=== PATIENT | female | born 1960 | race Caucasian/White ===

== ENCOUNTER → 2017-09-17 18:41 | Outpatient (CLI) | payer BC, SELFPAY | PROVIDERS: Family Provider Family Medicine; PCP Family Medicine; Visit Provider Family Medicine | DX: R30.0 Dysuria (principal) | CPT/HCPCS: 87077; 87086; 87088; 87186 ==

== ENCOUNTER → 2019-01-09 | Outpatient (CLI) | payer BC, SELFPAY | END | disposition home or self-care (01) | LOC: LABSPEC 13:55 | PROVIDERS: Family Provider Family Medicine; PCP Family Medicine; Referring Provider Family Medicine; Visit Provider Family Medicine | DX: N39.0 Urinary tract infection, site not specified (principal) | CPT/HCPCS: 87077; 87086; 87088; 87186 ==

== ENCOUNTER → 2019-02-02 | Outpatient (CLI) | payer BC, SELFPAY ==
[2019-02-06 12:19] LABS: HPV Reflexed? NOT INDICATED
== END | disposition home or self-care (01) ==
PROVIDERS: Family Provider Family Medicine; PCP Family Medicine; Referring Provider Family Medicine; Visit Provider Family Medicine
DX: N39.0 Urinary tract infection, site not specified (principal); Z12.4 Encounter for screening for malignant neoplasm of cervix
CPT/HCPCS: 87077; 87086; 87088; 87186; 88175; G0145

== ENCOUNTER → 2019-02-06 | Outpatient (CLI) | payer BC, SELFPAY ==
--- NOTE | 2019-02-06 12:49 | BI_ITS ---
MAMMOGRAPHY - BILATERAL SCREENING REASON FOR EXAM: Female, 58 years old. Routine annual screening examination. PERTINENT HISTORY: Aunt with breast cancer. Remote right stereotactic breast biopsy. TECHNIQUE: Digital bilateral breast hazel (3D mammographic acquisition) in the CC and MLO projections. 2-D mediolateral oblique (MLO) and craniocaudad (CC) views of both breasts were obtained. CAD: Full Field Digital Mammography with Computer Added Detection was performed. COMPARISON: Comparison is made with prior examination dated September 27, 2014 and October 20 FINDINGS: Breast Composition: The breasts are almost entirely fatty. There are no dominant masses or suspicious calcifications. A tissue clip marker is seen in the deep upper lateral aspect of the right breast. No other significant abnormalities are identified. There has been no significant change since the prior study. BI/SCREEN MAMM (CAD) W/HAZEL BILAT IMPRESSION: Stable bilateral screening mammogram. Yearly follow-up mammogram recommended. (A) ASSESSMENT CATEGORY: BIRADS Category 2: Benign. A letter regarding these results will be sent to the patient by the facility within 30 days. Approximately 10% of breast cancers are not detected by mammography. A normal mammogram should not delay biopsy of a clinically suspicious abnormality. [id number] Electronically Signed: Casey Arshad, at 14:26 EDT , Service support ,
== END | disposition home or self-care (01) ==
PROVIDERS: Family Provider Family Medicine; PCP Family Medicine; Referring Provider Family Medicine; Visit Provider Family Medicine
DX: Z12.31 Encounter for screening mammogram for malignant neoplasm of breast (principal)
CPT/HCPCS: 77063; 77067

== ENCOUNTER → 2019-06-26 16:57 | Outpatient (CLI) | payer BC, SELFPAY ==
--- NOTE | 2019-06-26 17:00 | RAD_ITS ---
STUDY: X-RAY - FACIAL BONES REASON FOR STUDY: Female, 58 years old. Facial contusion TECHNIQUE: 3 view(s) of the facial bones. COMPARISON: None. FINDINGS: There is no facial fracture identified. The paranasal sinuses are clear. There are no radiodense foreign bodies. RAD/Facial Bones min 3 Views IMPRESSION: No facial fracture identified. If indicated, further evaluation with CT can be performed. Electronically Signed: Won Alexis, at 10:03 EST Tel , Service support ,
== END ==
PROVIDERS: Family Provider Family Medicine; PCP Family Medicine; Referring Provider Family Medicine; Visit Provider Family Medicine
DX: S00.83XA Contusion of other part of head, initial encounter (principal)
CPT/HCPCS: 70150

== ENCOUNTER → 2020-04-29 14:45 | Outpatient (CLI) | payer BC, SELFPAY ==
--- NOTE | 2020-04-29 14:48 | RAD_ITS ---
STUDY: X-RAY - ABDOMEN/PELVIS REASON FOR EXAM: Female, 59 years old. constipation TECHNIQUE: Flat and upright COMPARISON: None. FINDINGS: Normal visualized lung bases. There is an unremarkable bowel gas pattern. There is no demonstrated free abdominal air. The visualized liver, spleen and kidneys are grossly normal in size and morphology. Postop changes status post cholecystectomy. Lumbar spine demonstrates mild degenerative change. RAD/Abd Inc Decub and/or Erect IMPRESSION: Nonspecific abdomen. Electronically Signed: Won Davis MD at 22:08 EST , Service support ,
== END ==
PROVIDERS: PCP Family Medicine; Referring Provider Family Medicine; Visit Provider Family Medicine
DX: K59.00 Constipation, unspecified (principal)
CPT/HCPCS: 74019

== ENCOUNTER → 2020-05-07 08:18 | Outpatient (CLI) | payer BC, SELFPAY ==
--- NOTE | 2020-05-07 08:20 | BI_ITS ---
MAMMOGRAPHY - BILATERAL SCREENING REASON FOR EXAM: Female, 59 years old. Routine annual screening examination. PERTINENT HISTORY: Aunt with breast cancer. Remote right stereotactic breast biopsy. TECHNIQUE: Digital bilateral breast hazel (3D mammographic acquisition) in the CC and MLO projections. 2-D mediolateral oblique (MLO) and craniocaudad (CC) views of both breasts were obtained. CAD: Full Field Digital Mammography with Computer Added Detection was performed. COMPARISON: Comparison is made with prior study dated 02/06/2019 and 10/20/2014. FINDINGS: Breast Composition: The breasts are almost entirely fatty. There are no dominant masses or suspicious calcifications. A tissue clip marker is once again seen in the deep upper lateral aspect of the right breast. No other significant abnormalities are identified. There has been no significant change since the prior study. BI/SCREEN MAMM (CAD) W/HAZEL BILAT IMPRESSION: Stable bilateral screening mammogram. Yearly follow-up mammogram recommended. (A) ASSESSMENT CATEGORY: BIRADS Category 2: Benign. A letter regarding these results will be sent to the patient by the facility within 30 days. Approximately 10% of breast cancers are not detected by mammography. A normal mammogram should not delay biopsy of a clinically suspicious abnormality. [id number] Electronically Signed: Casey Arshad, at 8:33 EST , Service support ,
== END ==
PROVIDERS: PCP Family Medicine; Referring Provider Family Medicine; Visit Provider Family Medicine
DX: Z00.00 Encounter for general adult medical examination without abnormal findings (principal); Z12.31 Encounter for screening mammogram for malignant neoplasm of breast
CPT/HCPCS: 77063; 77067

== ENCOUNTER → 2020-05-17 15:37 | Outpatient (CLI) | payer BC, SELFPAY ==
--- NOTE | 2020-05-17 15:51 | BD_ITS ---
STUDY: DUAL ENERGY X-RAY ABSORPTIOMETRY / DXA REASON FOR EXAM: Female, 59 years old. Age of marcell 43. Pat is 181# and 68 and quot; a loss of 1.5 and quot; per pat. Pat is a smoker. Exercises moderately. Hx of L4-5 fusion. TECHNIQUE: Bone Mineral Density (BMD) measurements of lumbar spine and bilateral hips were obtained. COMPARISON: Comparison is made with prior study dated 12/04/2005. FINDINGS: Lumbar Spine (L1-L4): g/cm2 (1.207) / T-score (0.2) / Z-score (1.5) Findings are suggestive of normal bone density with a low fracture risk. Left Femur Total: g/cm2 (1.009) / T-score (0.0) / Z-score (1.0) Left Femoral Neck: g/cm2 (1.013) / T-score (-0.2) / Z-score (1.1) Right Femur Total: g/cm2 (0.954) / T-score (-0.4) / Z-score (0.5) Right Femoral Neck: g/cm2 (0.954) / T-score (0.6) / Z-score (0.6) The T-Scores on the most recent prior examination were: Lumbar Spine (L1-L4): There has been improvement of bone density since the previous examination. Left Femur Total: which represents a worsening of 12%. BD/Dexa Bone Density Study IMPRESSION: The patient is considered normal as outlined below according to World [place] Organization (WHO) criteria with a low fracture risk. There has been worsening of bone density since the previous examination. Reference Information: The T-score is the number of standard deviations above or below the standard which is normal for young adults at their peak bone mineral density. The World Health Organization (WHO) interprets the T-scores as follows: Above -1 Normal bone density Between -1 and -2.5 Osteopenia Equal to / or below -2.5 Osteoporosis As a practical clinical guideline, osteopenia may be graded as follows: Mild -1 through -1.5 Moderate -1.6 through -2.0 Severe -2.1 through -2.4 The Z-score is the number of standard deviations above or below age-matched controls. A Z-score of less than -1.5 would be considered abnormal. References: 1. NIH Osteoporosis and Related Bone Diseases www osteo.org 2. International Society for Clinical Densitometry www iscd.org 3. National Osteoporosis Foundation www nof.org Electronically Signed: Casey Arshad, at 9:54 EST , Service support ,
== END ==
PROVIDERS: PCP Family Medicine; Referring Provider Family Medicine; Visit Provider Family Medicine
DX: N95.9 Unspecified menopausal and perimenopausal disorder (principal)
CPT/HCPCS: 77080

== ENCOUNTER → 2020-11-14 15:50 | Outpatient (CLI) | payer BC, SELFPAY ==
[2020-11-14 18:47] LABS: Anion Gap 6 (5-15); BUN 18 mg/dL (7-18); BUN/Creat Ratio 19.7 RATIO (10-20); Calcium,Total 8.6 mg/dL (8.5-10.1); Chloride 102 mmol/L (98-107); Cholesterol 175 mg/dL (200); Creatinine, Serum 0.92 mg/dL (0.55-1.02); EST Glomerular Filtration Rate 66 mL/min (>60); Est Glom Filt Rate - Afr Amer 80 mL/min (>60); Glucose 93 mg/dL (74-106); High Density Lipoprotein 44 mg/dL; Potassium 3.7 mmol/L (3.5-5.1); Sodium Level 135 mmol/L (136-145); Triglycerides 91 mg/dL; Very Low Density Lipoprotein 18 mg/dL (5-40)
== END ==
PROVIDERS: PCP Family Medicine; Visit Provider Family Medicine
DX: I10 Essential (primary) hypertension (principal)
CPT/HCPCS: 36415; 80048; 80061

== ENCOUNTER → 2021-03-30 | Outpatient (CLI) | payer BC, SELFPAY | END | disposition home or self-care (01) | PROVIDERS: PCP Family Medicine; Referring Provider Nurse Practitioner Family; Visit Provider Nurse Practitioner Family | DX: N39.0 Urinary tract infection, site not specified (principal) | CPT/HCPCS: 87086; 87088; 87186 ==

== ENCOUNTER → 2021-04-10 10:39 | Outpatient (CLI) | payer BC, SELFPAY | PROVIDERS: PCP Family Medicine; Referring Provider Physician Assistant; Visit Provider Physician Assistant | DX: Z11.52 Encounter for screening for COVID-19 (principal) | CPT/HCPCS: 87635; U0005; U0003 ==

== ENCOUNTER 2021-10-11 09:13 | Outpatient (CLI) | payer BC, SELFPAY ==
--- NOTE | 2021-10-11 09:17 | RAD_ITS ---
STUDY: X-RAY CHEST REASON FOR EXAM: Female, 60 years old. CHEST PAIN COUGH TECHNIQUE: XR Chest 2 Views COMPARISON: 8.9.16 FINDINGS: There is no demonstrated pleural abnormality. Normal size heart. Calcified mediastinal lymph node is stable. Normal visualized pulmonary arteries. There is atherosclerotic calcification of the aortic arch with tortuosity. There are diffuse degenerative changes of the visualized thoracic spine. There is degenerative osteoarthritis of the bilateral shoulders. There is no demonstrated abnormality of the visualized soft tissue structures of the upper abdomen. RAD/Chest PA and Lateral IMPRESSION: There are no acute findings. Electronically Signed: Bao Bergeron MD at 16:19 EDT ,
[2021-10-11 10:16] LABS: Erythrocyte Sedimentation Rate 3 mm/hr (0-30)
[2021-10-11 10:18] LABS: Absolute Lymphocyte Count 1.11 X10^3/uL (0.83-4.51); Absolute Neutrophil Count 4.5 X10^3/uL (2.0-7.7); Basophil# 0.05 X10^3/uL; Basophil% 0.8 % (0-1); Eosinophil# 0.08 X10^3/uL; Eosinophils% 1.2 % (0-5); Hematocrit 35.8 % (37-47); Lymphocyte # 1.11 X10^3/ul (0.83-4.51); Lymphocyte % 17.1 % (19-41); Mean Corp Hgb Conc 33.5 g/dL (32-36); Mean Corpuscular Hgb 33.9 pg (27.0-32.0); Mean Corpuscular Volume 101.1 fL (81-99); Mean Platelet Vol. 10.9 fl (6.2-12.0); Monocyte# 0.68 X10^3/uL; Monocyte% 10.5 % (0-10); NRBC Flagged by Analyzer 0 % (0-5); Neutrophil # 4.53 X10^3/uL (2.7-7.7); Neutrophil % 69.8 % (47-70); Platelet Count 185 K/mm3 (150-450); RBC Distribution Width CV 12.5 % (11.6-14.6); RBC Distribution Width SD 46.6 fl (35.1-43.9); Red Blood Count 3.54 M/mm3 (4.2-5.4); White Blood Count 6.5 K/mm3 (4.4-11.0)
[2021-10-11 10:59] LABS: ALB/GLOB Ratio 0.9 RATIO (0.9-2.4); AST(SGOT) 18 U/L (15-37); Alanine Aminotransfer ALT/SGPT 15 U/L (13-56); Albumin, Serum 3.7 g/dL (3.2-5.0); Alkaline Phosphatase 134 U/L (45-117); Anion Gap 6 (5-15); BUN 26 mg/dL (7-18); BUN/Creat Ratio 22.6 RATIO (10-20); Calcium,Total 8.6 mg/dL (8.5-10.1); Chloride 100 mmol/L (98-107); Creatinine, Serum 1.15 mg/dL (0.55-1.02); EST Glomerular Filtration Rate 51 mL/min (>60); Est Glom Filt Rate - Afr Amer 62 mL/min (>60); Glucose 68 mg/dL (74-106); Potassium 3.8 mmol/L (3.5-5.1); Protein, Total 7.7 g/dL (6.4-8.2); Sodium Level 135 mmol/L (136-145); Thyroid Stim Hormone (TSH) 2.33 uIU/mL (0.358-3.74)
== END 2021-10-11 23:59 | disposition home or self-care (01) ==
PROVIDERS: PCP Family Medicine; Referring Provider Family Medicine; Visit Provider Family Medicine
DX: B34.9 Viral infection, unspecified (principal); R53.83 Other fatigue; R05.9 Cough, unspecified
CPT/HCPCS: 36415; 71046; 80053; 84443; 85025; 85652; 87635; U0003; U0005

== ENCOUNTER 2022-05-01 15:19 | Outpatient (CLI) | payer BC, SELFPAY ==
[2022-05-01 17:56] LABS: Absolute Lymphocyte Count 1.34 X10^3/uL (0.83-4.51); Absolute Neutrophil Count 2.8 X10^3/uL (2.0-7.7); Basophil# 0.04 X10^3/uL; Basophil% 0.8 % (0-1); Eosinophil# 0.06 X10^3/uL; Eosinophils% 1.2 % (0-5); Hematocrit 31.7 % (37-47); Hemoglobin 10.1 g/dL (12.0-15.0); Lymphocyte # 1.34 X10^3/ul (0.83-4.51); Lymphocyte % 27.9 % (19-41); Mean Corp Hgb Conc 31.9 g/dL (32-36); Mean Corpuscular Hgb 31.4 pg (27.0-32.0); Mean Corpuscular Volume 98.4 fL (81-99); Mean Platelet Vol. 11.2 fl (6.2-12.0); Monocyte# 0.54 X10^3/uL; Monocyte% 11.2 % (0-10); NRBC Flagged by Analyzer 0 % (0-5); Neutrophil % 58.3 % (47-70); Platelet Count 181 K/mm3 (150-450); RBC Distribution Width CV 13.6 % (11.6-14.6); RBC Distribution Width SD 48.9 fl (35.1-43.9); Red Blood Count 3.22 M/mm3 (4.2-5.4); White Blood Count 4.8 K/mm3 (4.4-11.0)
[2022-05-01 18:43] LABS: ALB/GLOB Ratio 1.1 RATIO (0.9-2.4); AST(SGOT) 17 U/L (15-37); Alanine Aminotransfer ALT/SGPT 16 U/L (13-56); Albumin, Serum 3.8 g/dL (3.2-5.0); Alkaline Phosphatase 104 U/L (45-117); Anion Gap 10 (5-15); BUN 33 mg/dL (7-18); BUN/Creat Ratio 18.3 RATIO (10-20); Calcium,Total 8.6 mg/dL (8.5-10.1); Chloride 103 mmol/L (98-107); EST Glomerular Filtration Rate 30 mL/min (>60); Est Glom Filt Rate - Afr Amer 37 mL/min (>60); Globulin 3.4 g/dL (2.2-4.2); Glucose 93 mg/dL (74-106); Potassium 4.3 mmol/L (3.5-5.1); Protein, Total 7.2 g/dL (6.4-8.2); Sodium Level 135 mmol/L (136-145)
== END 2022-05-01 23:59 | disposition home or self-care (01) ==
LOC: MFPLAB 15:20
PROVIDERS: PCP Family Medicine; Referring Provider Family Medicine; Visit Provider Family Medicine
DX: R19.7 Diarrhea, unspecified (principal)
CPT/HCPCS: 36415; 80053; 85025

== ENCOUNTER → 2022-05-04 | Outpatient (CLI) | payer BC, SELFPAY | END | disposition home or self-care (01) | LOC: LABSPEC 11:06 | PROVIDERS: PCP Family Medicine; Referring Provider Family Medicine; Visit Provider Family Medicine | DX: R19.7 Diarrhea, unspecified (principal) | CPT/HCPCS: 87177; 87209; 87493; 87506 ==

== ENCOUNTER → 2022-07-27 | Outpatient (CLI) | payer BC, SELFPAY ==
--- NOTE | 2022-07-27 08:24 | CT_ITS ---
STUDY: LOW DOSE CT LUNG CANCER SCREENING REASON FOR EXAM: Female, 61 years old. Patient smoked 1 pack per day for 46 years. Hypertension. RADIATION DOSAGE (If Supplied By Facility): CTDIvol = ( 2.01 ) mGy, DLP = ( 68.46 ) mGycm TECHNIQUE: No contrast was administered. Low dose technique was utilized (average mAS-38 and kVp 120). 1.25 mm axial source images with a slice interval of 1.25-mm were reconstructed in lung windows. 2.5 mm axial source images with a slice interval of 2.5-mm were reconstructed in lung windows. 5.0 mm axial source images with a slice interval of 5.0-mm were reconstructed in soft tissue windows. COMPARISON: None. NODULES: No suspicious nodules are seen. Emphysema: Emphysematous changes with centrilobular emphysema worse in the upper lobes. Increased irregular soft tissue densities in the lung apices bilaterally in keeping with the apical scarring. Bronchiectasis and mild degree of the groundglass appearance in the right middle lobe. Scarring with bullous formation in the right lower lobe. Endobronchial lesion: Unremarkable. Aorta: Calcification of the aortic arch. CORONARY ARTERIES: Coronary artery calcification is not seen. Heart: Unremarkable. Pulmonary artery: Unremarkable. Mediastinal nodes: Calcified left hilar lymph nodes. Other chest and abdominal findings: CT/Low Dose CT Lung Screening IMPRESSION: Lung-RADS category 2 - Continue annual screening with LDCT in 12 months. IMPORTANT NOTES FOR USE: ACR Lung-RADS Version 1.1 Assessment Categories Release Date: 2018 Category: Coded 0-4 bases on nodule(s) with highest degree of suspicion. Negative screen is defined as categories 1 and 2; a positive screen is defined as categories 3 and 4. Category 3 and 4A nodules that are unchanged on interval CT should be coded as category 2, and individuals returned to screening in 12 months. Category 4X: Category 3 or 4 nodules with additional imaging findings that increase the suspicion of lung cancer, such as spiculation, GGN that doubles in size in 1 year, enlarged lymph notes, etc. Category Modifiers: S (significant finding unrelated to lung cancer) Electronically Signed: Casey Arshad MD at 13:56 EST ,
== END | disposition home or self-care (01) ==
PROVIDERS: PCP Family Medicine; Visit Provider Family Medicine
DX: Z12.2 Encounter for screening for malignant neoplasm of respiratory organs (principal); J43.2 Centrilobular emphysema; I70.0 Atherosclerosis of aorta; J47.9 Bronchiectasis, uncomplicated; F17.200 Nicotine dependence, unspecified, uncomplicated; J98.4 Other disorders of lung; I89.8 Other specified noninfective disorders of lymphatic vessels and lymph nodes
CPT/HCPCS: 71271

== ENCOUNTER → 2023-09-18 | Outpatient (CLI) | payer OTHER, SELFPAY ==
--- NOTE | 2023-09-18 10:55 | BD_ITS ---
STUDY: DUAL ENERGY X-RAY ABSORPTIOMETRY / DXA REASON FOR EXAM: Female, 62 years old. N95.9 TECHNIQUE: Bone Mineral Density (BMD) measurements of lumbar spine and bilateral hips were obtained. COMPARISON: Comparison is made with prior study May 17, 2020. FINDINGS: Lumbar Spine (L1-L4): g/cm2 (0.929) / T-score (-0.8) / Z-score (0.8) Findings are suggestive of normal bone density with a low fracture risk. Left Femur Total: g/cm2 (0.892) / T-score (-0.4) / Z-score (0.7) Left Femoral Neck: g/cm2 (0.795) / T-score (-0.5) / Z-score (1.0) Right Femur Total: g/cm2 (0.894) / T-score (-0.4) / Z-score (0.8) Right Femoral Neck: g/cm2 (0.867) / T-score (0.2) / Z-score (1.6) The T-Scores on the most recent prior examination were: Lumbar Spine (L1-L4): There has been worsening of bone density since the previous examination. Left Femur Total: which represents a worsening of 5.4 per. Right Femur Total: which represents an improvement of 0.6%. BD/Dexa Bone Density Study IMPRESSION: The patient is considered normal as outlined below according to World [place] Organization (WHO) criteria with a low fracture risk. There has been worsening of bone density since the previous examination. Reference Information: The T-score is the number of standard deviations above or below the standard which is normal for young adults at their peak bone mineral density. The World Health Organization (WHO) interprets the T-scores as follows: Above -1 Normal bone density Between -1 and -2.5 Osteopenia Equal to / or below -2.5 Osteoporosis As a practical clinical guideline, osteopenia may be graded as follows: Mild -1 through -1.5 Moderate -1.6 through -2.0 Severe -2.1 through -2.4 The Z-score is the number of standard deviations above or below age-matched controls. A Z-score of less than -1.5 would be considered abnormal. References: 1. NIH Osteoporosis and Related Bone Diseases www osteo.org 2. International Society for Clinical Densitometry www iscd.org 3. National Osteoporosis Foundation www nof.org Electronically Signed: Casey Arshad MD at 9:35 EDT ,
--- NOTE | 2023-09-18 11:10 | BI_ITS ---
MAMMOGRAPHY - BILATERAL SCREENING REASON FOR EXAM: Female, 62 years old. Routine annual screening examination. PERTINENT HISTORY: Aunt with breast cancer. Prior right stereotactic breast biopsy. TECHNIQUE: Digital bilateral breast hazel (3D mammographic acquisition) in the CC and MLO projections. 2-D mediolateral oblique (MLO) and craniocaudad (CC) views of both breasts were obtained. CAD: Full Field Digital Mammography with Computer Added Detection was performed. COMPARISON: Comparison is made with prior study dated May 07, 2020 and February 06, 2019. FINDINGS: Breast Composition: The breasts are almost entirely fatty. There are no dominant masses or suspicious calcifications. Once again, a tissue clip marker is seen in the deep upper lateral aspect of the right breast No other significant abnormalities are identified. There has been no significant change since the prior study. BI/SCRN MAMM (CAD)W/HAZEL BILAT IMPRESSION: Stable bilateral screening mammogram. Yearly follow-up mammogram recommended. (A) ASSESSMENT CATEGORY: BIRADS Category 2: Benign. A letter regarding these results will be sent to the patient by the facility within 30 days. Approximately 10% of breast cancers are not detected by mammography. A normal mammogram should not delay biopsy of a clinically suspicious abnormality. [id number] Electronically Signed: Casey Arshad MD at 12:28 EDT ,
--- NOTE | 2023-09-18 11:33 | CT_ITS ---
EXAM: CT CHEST, LUNG CANCER SCREENING WITHOUT INTRAVENOUS CONTRAST CLINICAL INDICATION: screening for lung cancer TECHNIQUE: Helically acquired images were obtained of the chest without intravenous contrast using low dose (LDCT) lung cancer screening protocol. This CT exam was performed using one or more of the following dose reduction techniques: automated exposure control, adjustment of the mA and/or kV according to patient size, and/or use of iterative reconstruction technique. COMPARISON: No relevant prior studies available. FINDINGS: LUNGS AND PLEURAL SPACES: Left hilar granulomas. Centrilobular and paraseptal emphysematous changes are identified bilaterally. Focal fibrotic changes in the right lower lobe. No mass. No pleural effusion or thickening. No pneumothorax. HEART: No significant abnormality. Heart size is normal. No pericardial effusion. No significant coronary artery calcifications. MEDIASTINUM: No significant abnormality. No mediastinal or hilar adenopathy. Esophagus is unremarkable. No hiatal hernia. THYROID: No significant abnormality. No thyroid lesions. BONES/JOINTS: Degenerative changes in the spine. No suspicious lytic or blastic abnormality. VASCULATURE: Atherosclerosis of the aorta. Thoracic aorta is non-dilated. LYMPH NODES: No significant abnormality. No enlarged lymph nodes. CT/Low Dose CT Lung Screening IMPRESSION: ACR Lung CT Screening Reporting And Data System (Lung-RADS) score: 1 - Recommend continued annual screening with a low-dose CT (LDCT) in 12 months. Electronically Signed: Tavo Venegas DO at 20:58 EDT ,
== END | disposition home or self-care (01) ==
PROVIDERS: PCP Family Medicine; Referring Provider Family Medicine; Visit Provider Family Medicine
DX: Z12.31 Encounter for screening mammogram for malignant neoplasm of breast (principal); N95.9 Unspecified menopausal and perimenopausal disorder; F17.200 Nicotine dependence, unspecified, uncomplicated; Z80.3 Family history of malignant neoplasm of breast
CPT/HCPCS: 71271; 77063; 77067; 77080

== ENCOUNTER 2023-09-25 05:21 | Inpatient (IN) | payer OTHER, SELFPAY ==
[2023-09-25] VITALS (24 sets, daily range): BP systolic 104–152; BP diastolic 46–93; PULSE 55–82; RESP 12–19; TEMP 35.9–36.9; O2SAT 91–100; BMI 27.3; BMI 26.6
--- NOTE | 2023-09-25 05:22 | EDS_ITS ---
HPI History of Present Illness Chief Complaint: Chest Pain [facility] Medical History Anxiety and depression Chronic anemia Fibromyalgia Tobacco use Home Medications aspirin 81 mg chewable tablet (Srinivasan Chewable Low Dose Aspirin) 1 tab PO DAILY 09/25/23 [History Last Taken Unknown] fluoxetine 40 mg capsule 40 mg PO DAILY 09/25/23 [History Last Taken Unknown] lisinopril 20 mg-hydrochlorothiazide 12.5 mg tablet 1 tab PO DAILY 09/25/23 [History Last Taken Unknown] Allergy/AdvReac Type Severity Reaction Status Date / Time No Known Allergies Allergy Verified 09/25/23 05:30 Family History (Updated 09/25/23 @ 05:[address] Stephy Hernandes MD) Mother CAD (coronary artery disease) Heart disease Hypertension Anxiety and depression Father Melanoma Surgical History (Updated 09/25/23 @ 05:[address] Stephy Hernandes MD) History of back surgery History of cholecystectomy S/P right knee arthroscopy Social History (Updated 09/25/23 @ 05:[address] Stephy Hernandes MD) household members: spouse Smoking Status: Current every day smoker tobacco type: cigarettes Smoking packs per day: 1 Smoking cigarettes per day: 20.0 Years smoked: 48 Smoking pack-years: 48.00 alcohol intake: never substance use type: does not use EXAM Physical Exam Const Vital Signs: 09/25/23 05:21 09/25/23 05:26 09/25/23 05:42 Temperature 96.7 F L Temperature Source Temporal Pulse Rate 69 Respiratory Rate 19 H Respiratory Effort Normal Short of Breath Blood Pressure 139/64 H Blood Pressure Mean 89 Pulse Ox 98 Oxygen Delivery Method Room Air Room Air 09/25/23 05:42 Temperature 97.9 F Temperature Source Pulse Rate 70 Respiratory Rate 18 Respiratory Effort Blood Pressure 128/79 H Blood Pressure Mean 95 Pulse Ox 97 Oxygen Delivery Method MDM MDM MDM Narrative Medical decision making narrative: HISTORY OF PRESENT ILLNESS: 62-year-old female presents with chest pain. She states pain in her chest started tonight approximately 24 hours prior to arrival. She notes associated shortness of breath. She notes chest pain is located the middle of her chest. It is intermittent. She complains of left arm pain as well. She does not describe the symptoms worsening with exertion. She denies history of STEMI. +tobacco use. The patient denies recent surgery in the last 4 weeks or immobilization in the last 3 days, denies previous diagnosis of DVT or PE, hemoptysis, unilateral leg swelling or malignancy with treatment the last 6 months or palliative. No estrogen use noted. Patient denies sudden onset of pain, no tearing sensation, no migratory symptoms, no new numbness, weakness or loss of sensation. Patient denies family history or personal history of Connective tissue disorders (Marfan's Syndrome, Antonia Danlos etc) REVIEW OF SYSTEMS: Pertinent positives: Chest pain, shortness of breath, diaphoresis Pertinent negatives: Syncope, leg swelling, fever, cough PHYSICAL EXAM: Nursing triage notes reviewed, Vital signs reviewed Constitutional: please see mdm HENT: MMM Eyes: Pupils equal round and reactive to light, Extraocular muscles intact Neck: No stridor, no JVD, full neck ROM Lungs: Clear to auscultation, No wheezing or rales. No increased work of breat cece, no conversational dyspnea, no accessory muscle use, no nasal flaring. No respiratory distress noted Heart: Regular rate and rhythm, No murmurs, No rubs and No gallops, 2+ distal pulses (radial, femoral, posterior tibial) in all extremities Abdomen: Soft, there is no tenderness, rigidity, rebound or guarding, no obvious peritoneal signs, no palpable pulsatile abdominal masses, no auscultated abdominal bruit Extremities: No edema Neuro: No focal neurological deficits, cranial nerves II through XII intact, 5/5 strength in all extremities. Intact sensation to light touch in all extremities, 2+ reflexes bilateral patella tendons. Skin: No rash or lesions noted, sallow, diaphoretic MEDICAL DECISION MAKING: Chief Complaint: Chest pain External records reviewed: Chest x-ray from 2021 shows no acute process Factors affecting care: Hypertension, venous insufficiency, lupus Social determinants of health: Tobacco abuse History obtained from others: Patient's Consults: Police Inspector (Dr. Carty), Hospitalist (Dr. Hernandes) [facility] Narrative: Patient was initially hemodynamically stable, afebrile and nontoxic-appearing. She did not appear in distress, uncomfortable, sallow and hardy appearing. I considered the following differential diagnosis: ACS, arrhythmia, anemia, electrolyte disturbance, pneumonia, CHF, PE, aortic dissection I obtained a broad lab and imaging workup to further elucidate etiology patient complaints. The patient is low risk Wells score and as such have a low suspicion for PE. She no pulse deficits ripping or tearing pain to suggest aortic dissection ALL IMAGES (IF OBTAINED) HAVE BEEN PERSONALLY REVIEWED AND INTERPRETED BY MYSELF. Initial EKG showed evidence of an inferior STEMI (this is markedly different from her prior EKG in March [address] elevations or depressions. Labs sent. 2 large-bore IVs placed. STEMI protocol activated. Patient denies any history of bleeding diathesis. She is given aspirin, Brilinta and heparin at the appropriate doses. Communicated with cardiology and hospitalist. Patient was sent directly to catheterization laboratory. The patient and/or family, caregivers express understanding. The patient and/or family, caregivers agrees with the plan. Shared decision making: I will have a discussion with the patient and or visitors regarding risk/benefits of further testing or admission. They will be made aware of of the risk/benefits inherent in this decision they will be given the opportunity to voice understanding. Total critical care time today provided was at least 35 minutes. This excludes separately billable procedures. Critical care time (if documented) is secondary to the patient having high probability of clinically significant/life threatening deterioration in the patient's condition which required my urgent intervention. Impression: 1. STEMI Dispo: admit to chemical laboratory scientist This note was generated with PiAuto dictation software. It may contain incorrect words, spelling, and punctuation that were not noted in review of the chart prior to signing. Lab Data Labs: Laboratory Results - last 24 hr 09/25/23 05:27 WBC 6.4 RBC 3.59 L Hgb 11.2 L Hct 34.7 L MCV 96.7 MCH 31.2 MCHC 32.3 RDW Std Deviation 46.9 H RDW Coeff of Keyshawn 13.1 Plt Count 196 MPV 10.4 Immature Gran % (Auto) 0.800 Neut % (Auto) 53.7 Lymph % (Auto) 29.6 [place] % (Auto) 12.8 H Eos % (Auto) 2.0 Baso % (Auto) 1.1 H Absolute Neuts (auto) 3.4 Absolute Lymphs (auto) 1.88 Nucleated RBC % 0 Discharge Plan Triage Chief Complaint: Chest Pain ED Provider: Krystian Durant Dx/Rx/DC Orders Primary Care Provider: Stella Ahuja
--- NOTE | 2023-09-25 05:34 | EKG12_ITS ---
Test Reason : CP Blood Pressure : / mmHG Vent. Rate : 061 BPM Atrial Rate : 061 BPM P-R Int : 188 ms QRS Dur : 092 ms QT Int : 436 ms P-R-T Axes : 062 016 078 degrees QTc Int : 438 ms Critical Test Result: STEMI Normal sinus rhythm Low voltage QRS ST elevation consider inferolateral injury or acute infarct ACUTE MD / STEMI Abnormal ECG Confirmed by SHARI SALAZAR, POPPY ([id number]), photography editor CHUY ATKINS ([id number]) on 09/26/2023 9:47:21 AM Referred By: Dyllan Carty Confirmed By:POPPY MCCARTHY MD
[2023-09-25] MEDS: Heparin Injection (Vial) 5,000 UNIT/ML VIAL 4000 UNIT IV (05:36)
[2023-09-25] MEDS: TICAGRELOR 90 MG TABLET 180 MG PO (05:37)
[2023-09-25] MEDS: Aspirin 81 MG TAB.CHEW 324 MG PO (05:38)
[2023-09-25] MEDS: Ondansetron 4 MG/2 ML Vial IV (05:39)
[2023-09-25 05:43] LABS: Absolute Lymphocyte Count 1.88 X10^3/uL (0.83-4.51); Absolute Neutrophil Count 3.4 X10^3/uL (2.0-7.7); Basophil# 0.07 X10^3/uL; Basophil% 1.1 % (0-1); Eosinophil# 0.13 X10^3/uL; Hematocrit 34.7 % (37-47); Hemoglobin 11.2 g/dL (12.0-15.0); Lymphocyte # 1.88 X10^3/ul (0.83-4.51); Lymphocyte % 29.6 % (19-41); Mean Corp Hgb Conc 32.3 g/dL (32-36); Mean Corpuscular Hgb 31.2 pg (27.0-32.0); Mean Corpuscular Volume 96.7 fL (81-99); Mean Platelet Vol. 10.4 fl (6.2-12.0); Monocyte# 0.81 X10^3/uL; Monocyte% 12.8 % (0-10); NRBC Flagged by Analyzer 0 % (0-5); Neutrophil # 3.41 X10^3/uL (2.7-7.7); Neutrophil % 53.7 % (47-70); Platelet Count 196 K/mm3 (150-450); RBC Distribution Width CV 13.1 % (11.6-14.6); RBC Distribution Width SD 46.9 fl (35.1-43.9); Red Blood Count 3.59 M/mm3 (4.2-5.4); White Blood Count 6.4 K/mm3 (4.4-11.0)
--- NOTE | 2023-09-25 05:44 | PCM.HP.STD ---
HPI - General General Date of Admission: 09/25/23 Date of Service: 09/25/23 Chief Complaint: Chest pain HPI Narrative The patient is a 62 y/o F w/ PMHx: Tobacco use, HTN, Venous stasis disease, Anxiety and Depression who presents to the [facility] ED on 09/25/23 with history of onset of chest discomfort awakening her at 3 AM in the morning noted to be in the midsternal region described as stabbing rated 8-9 out of 10 in severity with associated dyspnea, nausea without emesis as well as diaphoresis which she reports is never occurred previously and was persistent prompting eventual ED evaluation. Workup in the ED included T97.9, heart rate 70, BP 120/79, respiratory rate 18, 97% on room air, CBC with WC 6.4, hemoglobin 11.2, MCV 96.7, platelet 196 without marked shift, pending coags as well as BMP, troponin, chest x-ray upon evaluation of patient, EKG with evidence inferiolateral STEMI with prior EKG normal. In the ED patient ministered full-strength aspirin therapy, heparin bolus, Brilinta load and Zofran 4 mg IV x 1. [facility] Medical History Anxiety and depression Fibromyalgia Tobacco use Home Medications aspirin 81 mg chewable tablet (Srinivasan Chewable Low Dose Aspirin) 1 tab PO DAILY 09/25/23 [History Last Taken Unknown] fluoxetine 40 mg capsule 40 mg PO DAILY 09/25/23 [History Last Taken Unknown] lisinopril 20 mg-hydrochlorothiazide 12.5 mg tablet 1 tab PO DAILY 09/25/23 [History Last Taken Unknown] Allergy/AdvReac Type Severity Reaction Status Date / Time No Known Allergies Allergy Verified 09/25/23 05:30 Family History (Updated 09/25/23 @ 05:[address] Stephy Hernandes MD) Mother CAD (coronary artery disease) Heart disease Hypertension Anxiety and depression Father Melanoma Surgical History (Updated 09/25/23 @ 05:[address] Stephy Hernandes MD) History of back surgery History of cholecystectomy S/P right knee arthroscopy Social History (Updated 09/25/23 @ 05:[address] Stephy Hernandes MD) household members: spouse Smoking Status: Current every day smoker tobacco type: cigarettes Smoking packs per day: 1 Smoking cigarettes per day: 20.0 Years smoked: 48 Smoking pack-years: 48.00 alcohol intake: never substance use type: does not use ROS ROS Narrative Admission Review of Systems: CONSTITUTIONAL: No weight loss, fever, chills, + weakness or fatigue. HEENT: Eyes: No visual loss, blurred vision, double vision or yellow sclerae. Ears, Nose, Throat: No hearing loss, sneezing, congestion, runny nose or sore throat. SKIN: No rash or itching, lesions, wounds. CARDIOVASCULAR: + Chest pain. No palpitations, edema, orthopnea, syncopal events. RESPIRATORY: + Dyspnea. No cough or sputum, wheezing, hemoptysis. GASTROINTESTINAL: + Anorexia, nausea without emesis. No diarrhea, abdominal pain, melena, BRBPR. GENITOURINARY: No dysuria, frequency, urgency or retention. NEUROLOGICAL: No headache, dizziness, syncope, paralysis, ataxia, numbness or tingling in the extremities, focal weakness, change in bowel or bladder control, seizure. MUSCULOSKELETAL: + muscle, back pain, joint pain or stiffness. HEMATOLOGIC: + Anemia. No bleeding or bruising. LYMPHATICS: No enlarged nodes. No history of splenectomy. PSYCHIATRIC: + History of anxiety and depression. ENDOCRINOLOGIC: + reports of sweating. No cold or heat intolerance. No polyuria or polydipsia. ALLERGIES: No history of asthma, hives, eczema or rhinitis. Vital Signs Vital Signs Vital Signs: 09/25/23 05:21 09/25/23 05:26 09/25/23 05:42 Temperature 96.7 F L Temperature Source Temporal Pulse Rate 69 Respiratory Rate 19 H Respiratory Effort Normal Short of Breath Blood Pressure 139/64 H Blood Pressure Mean 89 Pulse Ox 98 Oxygen Delivery Method Room Air Room Air 09/25/23 05:42 Temperature 97.9 F Temperature Source Pulse Rate 70 Respiratory Rate 18 Respiratory Effort Blood Pressure 128/79 H Blood Pressure Mean 95 Pulse Ox 97 Oxygen Delivery Method Weight Weight: 179 lb 14.355 oz Body Mass Index (BMI) 27.3 Physical Exam Narrative Physical Examination: General: Awake, alert, oriented x 3 and cooperative, seated upright in the ED bed in no apparent distress, fatigued, mildly diaphoretic, ongoing chest pain rate 80 9 out of 10 in severity. Skin: Normal color, normal turgor, no icterus, no cyanosis. HEENT: AT/NC, EOMI, PERRLA, mildly dry MM, no carotid bruits or JVD noted. Lungs: CTA bilaterally, moderate effort, mild decrease BL bases, no rales, ronchi or wheezing. Heart: Regular rate and rhythm; no gallop, rub audible. Abdomen: Soft, NTTP, ND, normal BS, no HSM. Extremities: No cyanosis, clubbing, or edema. Neurological: Patient awake, alert, oriented as noted, cognitive function intact; pupils equally reactive to light and accommodation, cranial nerves II-XII grossly normal, moving all 4 extremities, no focal deficits, strength moderately to severely globally Ernestina secondary to acute presentation. Psychiatric: Affect appears fatigued, mildly ill-appearing, no acute evidence of depressive or anxiety feelings but does have underlying history. Results Lab / Micro Data 09/25/23 05:27 09/25/23 05:27 Labs: Laboratory Results - last 24 hr 09/25/23 05:27: WBC 6.4, RBC 3.59 L, Hgb 11.2 L, Hct 34.7 L, MCV 96.7, MCH 31.2, MCHC 32.3, RDW Std Deviation 46.9 H, RDW Coeff of Keyshawn 13.1, Plt Count 196, MPV 10.4, Immature Gran % (Auto) 0.800, Neut % (Auto) 53.7, Lymph % (Auto) 29.6, Clinch % (Auto) 12.8 H, Eos % (Auto) 2.0, Baso % (Auto) 1.1 H, Absolute Neuts (auto) 3.4, Absolute Lymphs (auto) 1.88, Nucleated RBC % 0 Assessment & Plan Assessment/Plan (1) STEMI (ST elevation myocardial infarction): PLAN: Plan The patient is a 62 y/o F w/ PMHx: Tobacco use, HTN, Venous stasis disease, Anxiety and Depression who presents to the [facility] ED on 09/25/23 with history of onset of chest discomfort awakening her at 3 AM in the morning noted to be in the midsternal region described as stabbing rated 8-9 out of 10 in severity with associated dyspnea, nausea without emesis as well as diaphoresis which she reports is never occurred previously and was persistent prompting eventual ED evaluation. #1. Chest Pain w/ Acute Inferiolateral STEMI: EKG in ED w/ evidence inferiolateral STEMI, CXR pending upon evaluation, troponin pending upon evaluation. Will admit to ICU following catheterization, will maintain on a monitored bed, continue serial cardiac enzymes and EKGs. Obtain magnesium level upon admission. Administered heparin bolus in the ED. Continue medical management w/ asa, add at least low-dose BB however will defer to discretion of cardiology, add high-dose statin w/ AM FLP. ECHO requested. Cardiology consulted and aware of case with STEMI call in the ED. #2. Hypertension: Will continue patient home lisinopril, attempt addition of at least low-dose beta-rafa but will defer to discretion of cardiology, PRN hydralazine. #3. Chronic normocytic anemia: Initial hemoglobin 11.2, MCV 96.7, baseline hemoglobin noted previously 10-12, most recently 05/01/2022 hemoglobin 10.1, will continue to trend CBC. #4. Anxiety and depression: We will continue patient on fluoxetine regimen. #5. Tobacco Abuse: Encouraged cessation, inpatient consultation per RT, NR if desired. #6. Chronic venous stasis disease: No marked lower extremity edema, will continue treatments as noted above. #7. DVT prophylaxis: Heparin bolus administered in the ED, transition to Lovenox chemoprophylaxis once appropriate. #8. CODE status: Patient does not have healthcare prior trust and estates attorney or living will in place but notes her would be her decision-maker if necessary. Discussed CODE status at length including difference between FULL code, DNR-CCA and DNR-CC status. Following discussions about the differences in these status, requested full code. Advanced Care Planning Face to Face Time: 16 minutes. Charges/Coding Visit Charges Inpatient E&M: 80555 Init Hosp L3 Procedures Hospitalists Procedures: 45660 Advncd Care Plan 30 Min
[2023-09-25 05:58] LABS: Prothrombin Time (Protime)PT. 13.1 SECONDS (11.7-14.9)
[2023-09-25 05:59] LABS: Partial Thromboplast Time 24.9 Seconds (24.1-36.2)
[2023-09-25 06:06] LABS: Anion Gap 6 (5-15); BUN 22 mg/dL (7-18); BUN/Creat Ratio 16.5 RATIO (10-20); Calcium,Total 8.6 mg/dL (8.5-10.1); Chloride 103 mmol/L (98-107); Creatinine, Serum 1.33 mg/dL (0.55-1.02); EST Glomerular Filtration Rate 43 mL/min (>60); Est Glom Filt Rate - Afr Amer 52 mL/min (>60); Estimated Creatinine Clearance 48.51 ml/min; Glucose 129 mg/dL (74-106); Potassium 3.7 mmol/L (3.5-5.1); Sodium Level 135 mmol/L (136-145); Troponin-I HS 58 pg/mL (3.0-54.0)
[2023-09-25 06:07] LABS: Magnesium 2.1 mg/dL (1.6-2.6)
--- NOTE | 2023-09-25 07:23 | CON.PCM.CA_ITS ---
Assessment & Plan Assessment/Plan (1) STEMI (ST elevation myocardial infarction): PLAN: Patient was taken emergently to the cardiac catheterization lab. Coronary angiography revealed total occlusion of the mid left circumflex. Successful revascularization was performed with placement of a drug-eluting stent. Excellent results were noted with confucianist of DEVIN-3 flow. Patient was also noted to have about 90% lesion in the first obtuse marginal branch. That was also successfully intervened upon with placement of drug- eluting stent. Continue aspirin lifelong. Clopidogrel for at least 1 year. Beta-blockers. (2) Coronary artery disease: PLAN: See #1 above. Aspirin, clopidogrel, beta-blockers, statins. (3) Hypertension: PLAN: Beta-blockers, ACEI. (4) Nicotine dependence: PLAN: Counseled to quit. HPI Consult Data Date of Consult: 09/25/23 HPI Narrative Reason for Consultation: STEMI HPI Narrative: This lady has past medical history significant for hypertension, nicotine dependence and anxiety/depression. She woke up early this morning at around 3 AM with anterior chest tightness. She describes some radiation to her left shoulder. Upon presentation to the emergency room, an EKG was done. This showed changes consistent with acute inferior posterior myocardial infarction. Subsequently a STEMI alert was called. COUNTS INCLUDE 234 BEDS AT THE [facility] Medical History Anxiety and depression Chronic anemia Fibromyalgia Tobacco use Home Medications aspirin 81 mg chewable tablet (Srinivasan Chewable Low Dose Aspirin) 1 tab PO DAILY 09/25/23 [History Last Taken Unknown] fluoxetine 40 mg capsule 40 mg PO DAILY 09/25/23 [History Last Taken Unknown] lisinopril 20 mg-hydrochlorothiazide 12.5 mg tablet 1 tab PO DAILY 09/25/23 [History Last Taken Unknown] Allergy/AdvReac Type Severity Reaction Status Date / Time No Known Allergies Allergy Verified 09/25/23 05:30 Family History (Updated 09/25/23 @ 05:[address] Stephy Hernandes MD) Mother CAD (coronary artery disease) Heart disease Hypertension Anxiety and depression Father Melanoma Surgical History (Updated 09/25/23 @ 05:[address] Stephy Hernandes MD) History of back surgery History of cholecystectomy S/P right knee arthroscopy Social History (Updated 09/25/23 @ 05:[address] Stephy Hernandes MD) household members: spouse Smoking Status: Current every day smoker tobacco type: cigarettes Smoking packs per day: 1 Smoking cigarettes per day: 20.0 Years smoked: 48 Smoking pack-years: 48.00 alcohol intake: never substance use type: does not use Physical Exam Narrative Comfortable. No apparent distress. Heart sounds 1 and 2 noted. Chest clear to auscultation bilaterally. Alert oriented x 3. No ankle edema noted. Risk Stratification Risk Stratification Applicable: No Objective Data Vital Signs: Vital Signs Temp Pulse Resp BP Pulse Ox O2 Del Method 97.9 F 70 18 128/79 H 97 Room Air 09/25/23 05:42 09/25/23 05:42 09/25/23 05:42 09/25/23 05:42 09/25/23 05:42 09/25/23 05:42 Oxygen Delivery Method Room Air Weight: 179 lb 14.355 oz Body Mass Index (BMI) 27.3 Lab / Micro Data 09/25/23 05:27 09/25/23 05:27 Labs: Laboratory Results - last 24 hr 09/25/23 05:27: WBC 6.4, RBC 3.59 L, Hgb 11.2 L, Hct 34.7 L, MCV 96.7, MCH 31.2, MCHC 32.3, RDW Std Deviation 46.9 H, RDW Coeff of Keyshawn 13.1, Plt Count 196, MPV 10.4, Immature Gran % (Auto) 0.800, Neut % (Auto) 53.7, Lymph % (Auto) 29.6, [place] % (Auto) 12.8 H, Eos % (Auto) 2.0, Baso % (Auto) 1.1 H, Absolute Neuts (auto) 3.4, Absolute Lymphs (auto) 1.88, Nucleated RBC % 0, PT 13.1, INR 1.0, APTT 24.9, Sodium 135 L, Potassium 3.7, Chloride 103, Carbon Dioxide 26.0, Anion Gap 6, BUN 22 H, Creatinine 1.33 H, Estim Creat Clear Calc 48.51, Est GFR (MDRD) Af Amer 52 L, Est GFR (MDRD) Non-Af 43 L, BUN/Creatinine Ratio 16.5, Glucose 129 H, Calcium 8.6, Magnesium 2.1, Troponin I High Sens 58 H Rhythm Strip Rhythm Strip: Sinus Rhythm Cardiology Labs/Tests 09/25/23 05:27: WBC 6.4, RBC 3.59 L, Hgb 11.2 L, Hct 34.7 L, MCV 96.7, MCH 31.2, MCHC 32.3, Plt Count 196, MPV 10.4, Immature Gran % (Auto) 0.800, Neut % (Auto) 53.7, Lymph % (Auto) 29.6, [place] % (Auto) 12.8 H, Eos % (Auto) 2.0, Baso % (Auto) 1.1 H, Absolute Neuts (auto) 3.4, Nucleated RBC % 0, PT 13.1, INR 1.0, APTT 24.9, Sodium 135 L, Potassium 3.7, Chloride 103, Carbon Dioxide 26.0, Anion Gap 6, BUN 22 H, Creatinine 1.33 H, Est GFR (MDRD) Af Amer 52 L, Est GFR (MDRD) Non- Af 43 L, BUN/Creatinine Ratio 16.5, Glucose 129 H, Calcium 8.6, Magnesium 2.1 Rhythm: EKG: Sinus rhythm with changes consistent with acute inferior posterior myocardial infarction. ECHO: Stress Test: Cardiac Cath: PCI: CT Surgery: Holter monitor: EPS: PPM: CXR: Chest CT Scan:
[2023-09-25 07:28] LABS: ACT Activated Clotting Time 223 sec (74-137)
[2023-09-25 07:28] LABS: ACT Activated Clotting Time 190 sec (74-137)
--- NOTE | 2023-09-25 07:33 | ECHOD_ITS ---
Reason For Study: CAD/ASHD Procedure This was a 2D Doppler, Color Flow transthoracic echocardiogram. Exam performed portable in ICU/CCU. Left Ventricle Normal LV size. Stage 1 diastolic dysfunction. The left ventricular ejection fraction is 55 %. Mild segmental systolic dysfunction (see wall motion). Mid-Lateral : Hypokinetic. Right Ventricle Normal RV size. Normal systolic function. Atria Normal left atrium. Normal right atrium. Mitral Valve Bileaflet diffuse mitral valve thickening. Tricuspid Valve Normal tricuspid valve. Aortic Valve Trisinus/trileaflet aortic valve. Pulmonic Valve Normal pulmonic valve. Great Vessels Normal aortic root. The pulmonary artery is normal size. Inferior vena cava collapse with respiration. Pericardium/Pleural No pericardial effusion. MMode/2D Measurements & Calculations LVIDd: 4.5 cm IVSd: 1.1 cm Ao root diam: 3.8 cm LVIDs: 3.4 cm LVPWd: 1.0 cm LA dimension: 3.6 cm RVDd: 2.9 cm FS: 25.3 % LAV(MOD-bp): 41.0 ml LVAd ap4: 24.0 cm2 LVAd ap2: 24.8 cm2 LAV(MOD-bp) Indexed: 21.0 ml/m2 LVLd ap4: 7.1 cm LVLd ap2: 7.7 cm LAV(MOD-sp2): 38.2 ml EDV(MOD-sp4): 66.5 ml EDV(MOD-sp2): 67.5 ml LAV(MOD-sp4): 35.2 ml EDV(sp4-el): 68.6 ml EDV(sp2-el): 67.9 ml LVAs ap4: 13.2 cm2 LVAs ap2: 15.0 cm2 LVLs ap4: 5.9 cm LVLs ap2: 6.8 cm ESV(MOD-sp4): 26.4 ml ESV(MOD-sp2): 28.1 ml ESV(sp4-el): 25.1 ml ESV(sp2-el): 28.4 ml EF(MOD-sp4): 60.3 % EF(MOD-sp2): 58.4 % EF(sp4-el): 63.4 % SV(MOD-sp4): 40.1 ml SV(MOD-sp2): 39.4 ml SV(sp4-el): 43.5 ml TAPSE: 1.5 cm LA A4 area: 13.8 cm2 RA A4 area: 12.8 cm2 Time Measurements MV dec time: 0.31 sec Doppler Measurements & Calculations MV E max sameer: 47.2 cm/sec Lat Peak E' Sameer: 7.9 cm/sec Med Peak E' Sameer: 7.3 cm/sec MV A max sameer: 59.7 cm/sec E/E' lat: 6.0 E/E' med: 6.4 MV E/A: 0.79 MV V2 max: 65.0 cm/sec MV P1/2t max sameer: 56.8 cm/sec Ao V2 max: 82.1 cm/sec MV max P.7 mmHg MV P1/2t: 94.1 msec Ao max P.7 mmHg MV V2 mean: 41.4 cm/sec MV dec slope: 176.6 cm/sec2 Ao V2 mean: 56.6 cm/sec MV mean P.77 mmHg Ao mean P.5 mmHg MV V2 VTI: 15.9 cm MVA(P1/2t): 2.3 cm2 Ao V2 VTI: 20.9 cm AV (velocity ratio): 0.88 LV V1 max: 74.0 cm/sec PA V2 max: 80.6 cm/sec LV V1 max P.2 mmHg PA V2 mean: 62.5 cm/sec LV V1 mean P.1 mmHg LV V1 mean: 48.1 cm/sec LV V1 VTI: 18.3 cm ECHO/Echo Complete Interpretation Summary Normal LV size. Mid-Lateral : Hypokinetic Bileaflet diffuse mitral valve thickening. Stage 1 diastolic dysfunction. The left ventricular ejection fraction is 55 %. Mild segmental systolic dysfunction (see wall motion). Ordering Physician: Stephy Hernandes Referring Physician: Desiree Carty Amy Performed By: Zandra Clark, HANGCS, RVT
--- NOTE | 2023-09-25 07:55 | CL.I_ITS ---
Patient Name: FRANCISCO ODONNELL Study Date: 09/25/2023 Performing: Dyllan Carty MD Ht: 68 inches 172.72 cm : 1960 Wt: 180.1 lbs 81.6 kg Age: 62 Gender: female BSA: 1.95 PROCEDURE(S) PERFORMED DC01-(30170)LHC/COR/LV IC16-([id number]/[id number])AMI, KOLTON OR PTCA, ARTERY/GRAFT, SINGLE VESSEL IC13-(44593/C9600)KOLTON W/WO PTCA, EACH ADD'L ART, SAME MAJOR CLINICAL PROFILE AND CO-MORBIDITIES Indications: ACS <= 24 hrs Heart Failure: None CAD Presentations: STEMI. Symptom onset Date/Time: 09/25/2023 Time Estimated 03:00 AM CONCLUSIONS 100% Mid LCX; 90% Mid OM1 60% Prox LAD LVEF 45% Successful PTCA/KOLTON Mid LCX using [place] Wagoner 2.5x15 mm Successful KOLTON Mid OM1 using Leida Wagoner 2.5x8 mm RECOMMENDATIONS ASA Indefinitley Plavix for at least 12 months Risk factor modification DESCRIPTION OF PROCEDURE The patient arrived to the procedure lab. The risks and benefits of the procedure as well as a full description of our services here and lack of surgical backup were fully explained to the patient and/or their significant other prior to the catheterization. The Timeout was completed, verifying the correct patient and procedure. The patient's procedural site was prepped and draped in the usual fashion. Local anesthetic was given subcutaneously to right radial region with Lidocaine 2%. Using a modified Seldinger technique, arterial access was obtained via the right radial artery, a 6Fr sheath was inserted.. Left Coronary Artery selective angiography was performed in multiple views using a 5 Fr. 4.0 Orchard catheter. Right Coronary Artery selective angiography was then performed in multiple views using a 5 Fr. 4.0 Orchard catheter. Left Ventriculography was performed in COSBY projection using a 5 Fr. Pigtail catheter. LV to AO pullback pressures were then recorded XB 3.0 Guide catheter was inserted and engaged into the LCA. Run through Guide wire was advanced to the circumflex Emerge 2.5x15 Balloon catheter was inserted. PTCA balloon inflated at 6 atms for 8 secs. Runthrough Guide wire was inserted as a robert wire Wagoner [place] 2.5x15 Drug Eluting stent was inserted. Angiogram performed post stent deployment. NC Emerge 2.50x15 Balloon catheter was inserted. Angiogram performed post balloon dilatation. Fontier Leida 2.5x8 Drug Eluting stent was inserted. NC Emerge 2.50x 8 Balloon catheter was inserted. Angiogram performed post balloon dilatation. The arterial sheath was pulled and a TR Band was applied for hemostasis w/ 10ml air CORONARY ANGIOGRAPHY DOMINANCE: Right Dominant LEFT HEART ASSESSMENT Left Ventricular Ejection Fraction: by LV Gram 45 % LVEDP: 21 mmHg Posterior Hypokinesis - Severe LEFT ANTERIOR DESCENDING ARTERY: LAD: Tubular 60% Proximal lesion in LAD INTERVENTION INFORMATION LESION SITE: Circumflex (Mid) Lesion Complexity: High/C, lesion length: 13 mm, thrombus present: Yes, culprit lesion: Yes Pre Stenosis: 100 % Pre intervention DEVIN flow: 0 PROCEDURE: Drug Eluting Stent with pre and post dilatation Post Stenosis: 0 % Post intervention DEVIN flow: 3 Lesion Devices: Terumo .014 180cm Runthrough Extra Floppy straight Cordis 6 Fr XB3.0 100cm Guide Catheter Darius Sci EMERGE MR 2.50x15 BALLOON Medtronic 2.50 x 15 LEIDA FRONTIER KOLTON Darius Sci NC EMERGE MR 2.50x15 BALLOON LESION SITE: 1st OM (Mid) Lesion Complexity: Non-High/Non-C, lesion length: 6 mm, culprit lesion: No Pre Stenosis: 90 % Pre intervention DEVIN flow: 3 Post Stenosis: 0 % Post intervention DEVIN flow: 3 Lesion Devices: Terumo .014 180cm Runthrough Extra Floppy straight Cordis 6 Fr XB3.0 100cm Guide Catheter Medtronic 2.50 x 08 LEIDA FRONTIER KOLTON Darius Sci NC EMERGE MR 2.50x08 BALLOON COMPLICATIONS No Complications PROCEDURE MEDICATIONS Fentanyl 50 mcg IV Oxygen: 2 L/min via nasal cannula Heparin 5000 unit(s) IV 09/25/2023 06:29:24 Heparin 2000 unit(s) IV 09/25/2023 07:11:48 Nitro 200 mcg IC 09/25/2023 06:44:22 Nitro 200 mcg IC 09/25/2023 06:44:22 Verapamil 2.5mg, Ntg 200mcgs, given IA 09/25/2023 06:23:49 SUMMARY OF HEMODYNAMIC DATA Time AIR REST ECG 06:12:56 AO 155/90 (119) SA 06:25:58 LV 139/-2, 18 07:05:05 LV 141/1, 21 07:05:14 LV 139/20, 23 07:06:08 LV 132/19, 22 07:06:16 LVp 132/19, 22 07:06:20 AOp 133/77 (104) 07:06:27 Signed By Dyllan Carty MD On 09/25/2023 07:54:55 Dyllan Carty MD
[2023-09-25] MEDS: 0.9% Normal Saline (1000mL) 1,000 ML 100 ML IV (08:01)
[2023-09-25] MEDS: Lisinopril 20 MG Tablet PO (09:15)
[2023-09-25 09:29] LABS: Troponin-I HS 9306 pg/mL (3.0-54.0)
[2023-09-25] MEDS: Fluoxetine HCl 40 MG CAPSULE PO (10:40)
--- NOTE | 2023-09-25 10:52 | CASEMGMT ---
MUKUL CASTANO Assessment: Face to Face with pt for initial transition planning/care coordination assessment. RN EYAD introduced self and role at [facility], pt voices understanding and consents to assessment. Pt is A&O x4 and answers all questions appropriately at this time. Pt lying in bed in no distress. Care providers, pharmacy, and demographics verified/updated. Admitting Dx: STEMI PCP:[facility] Specialists:Denies Preferred [facility]acy[facility] Insurance: [facility] Just for Me Prescription Benefit: yes LNOK: Leonid Stewart, Living Arrangements: Pt lives with in a mobile home with 5-6 steps to enter with a rail. Pt reports being I in ADL's and denies concerns at home. Transportation: Pt drives self and denies concerns with transportation. is able to drive also. DME:cane- doesn't use HHC/SNF: Denies hx of Pt states no concerns with going home at time of dc. Pt states no further concerns/needs. CM to follow. Advised pt to ask CM if any further question/concerns/needs arise, voices understanding. Pt Goal: Home Plan: Home Juni GILMAN CM
--- NOTE | 2023-09-25 12:21 | PN.HOSP_ITS ---
Reason for Visit Reason for Visit: Diagnoses Nicotine dependence, unspecified, uncomplicated (09/25/23) Essential (primary) hypertension (09/25/23) ST elevation (STEMI) myocardial infarction of unspecified site (09/25/23) Atherosclerotic heart disease of [place] coronary artery without angina pectoris (09/25/23) Subjective Subjective Patient presented earlier this morning as a STEMI alert. Taken emergently to the Knitting Supervisor and had 2 stents placed, 1 in the mid LCx and 1 in the mid OM1. Was then transported up to the ICU after the heart cath. Saw patient at the bedside later this morning. She was sitting up comfortably in bed, conversing normally, in no acute distress. She reported feeling fatigued but otherwise denied any chest pain or shortness of breath at rest. She was breathing comfortably on room air. She had no other concerns at this time. Objective Data Objective Data Vital Signs: Vital Signs Temp Pulse Resp BP Pulse Ox O2 Del Method 98.2 F 58 L 14 118/85 H 98 Room Air 09/25/23 12:00 09/25/23 12:00 09/25/23 12:00 09/25/23 12:00 09/25/23 12:00 09/25/23 12:00 Oxygen Delivery Method Room Air Weight: 79.379 kg Body Mass Index (BMI) 26.6 Lab / Micro Data 09/25/23 05:27 09/25/23 05:27 Labs: Laboratory Results - last 24 hr 09/25/23 05:27: WBC 6.4, RBC 3.59 L, Hgb 11.2 L, Hct 34.7 L, MCV 96.7, MCH 31.2, MCHC 32.3, RDW Std Deviation 46.9 H, RDW Coeff of Keyshawn 13.1, Plt Count 196, MPV 10.4, Immature Gran % (Auto) 0.800, Neut % (Auto) 53.7, Lymph % (Auto) 29.6, Foster % (Auto) 12.8 H, Eos % (Auto) 2.0, Baso % (Auto) 1.1 H, Absolute Neuts (auto) 3.4, Absolute Lymphs (auto) 1.88, Nucleated RBC % 0, PT 13.1, INR 1.0, APTT 24.9, Sodium 135 L, Potassium 3.7, Chloride 103, Carbon Dioxide 26.0, Anion Gap 6, BUN 22 H, Creatinine 1.33 H, Estim Creat Clear Calc 48.51, Est GFR (MDRD) Af Amer 52 L, Est GFR (MDRD) Non-Af 43 L, BUN/Creatinine Ratio 16.5, Glucose 129 H, Calcium 8.6, Magnesium 2.1, Troponin I High Sens 58 H 09/25/23 06:25: Activated Clotting Time 190 H 09/25/23 07:05: Activated Clotting Time 223 H 09/25/23 08:58: Troponin I High Sens 9306 H* Rhythm Strip Rhythm Strip: Sinus Rhythm Physical Exam Const alert, oriented x3, no apparent distress and average body habitus Constitutional Narrative: Pleasant elderly female, sitting up comfortably in bed, conversing normally, no acute distress. General Appearance: cooperative and comfortable HEENT normocephalic, head/scalp atraumatic, hearing grossly normal bilaterally, nasal mucous membranes and turbinates normal and moist oral mucous membranes Eyes PERRL, EOMs intact bilaterally and conjunctivae normal Neck full ROM Chest inspection of chest normal Resp normal respiratory effort, normal air movement, no use of accessory muscles and clear to auscultation bilaterally Cardio regular rate, regular rhythm, no murmurs and peripheral pulses 2+ throughout GI normal to inspection, nondistended, normoactive bowel sounds, soft to palpation, non-tender and non-distended Back/Spine normal ROM Extremity normal to inspection, full ROM and no pedal edema Skin no rashes or lesions noted Neuro moves all extremities and no focal motor deficits Speech: speech normal Psych mental status grossly normal Assessment & Plan Assessment/Plan (1) STEMI (ST elevation myocardial infarction): (2) CKD (chronic kidney disease) stage 3, GFR 30-59 ml/min: PLAN: Plan Patient is a 62-year-old female who presented to [facility] ED on 09/25/2023 with chest pain. 1. STEMI Left heart cath on 09/24 with successful KOLTON x 2 to mid LCx and OM1. Hemodynamically stable post cath. Echo on 09/24 showed EF 55%, stage I diastolic dysfunction, mild segmental systolic dysfunction with hypokinesis in mid lateral LV, bileaflet diffuse mitral valve thickening, no other significant abnormalities. ? Cardiology following. Continue aspirin lifelong and clopidogrel for at least 1 year. Started Lopressor 12.5 mg twice daily, continued lisinopril 10 mg daily. Also started atorvastatin 80 mg daily. Follow-up lipid panel and A1c. Continue cardiac monitoring. If patient remains stable tomorrow, likely okay for discharge home. 2. Suspected CKD stage III ? Creatinine 1.33 on admit. Last creatinine values were from 2021, ranged from 1.1-1.8. Would suspect CKD would be due to longstanding hypertension. Has had good urine output since admission. Follow-up a.m. BMP and monitor urine output. Chronic medical conditions: ? Depression: Stable. Continue home fluoxetine. ? Hypertension: On home lisinopril?hydrochlorothiazide. Current treatment as noted above. ? Tobacco use: Current cigarette smoker, smokes 1 pack/day, 30-mmar-vwoy history. Encouraged cessation. Nicotine replacement therapy available while inpatient as needed. ? Chronic normocytic anemia: Hemoglobin 11.2 on admit, baseline hemoglobin 10- 12. Stable. DVT prophylaxis: Lovenox CODE STATUS: Full code, verified Expected disposition: Home, 1 to 2 days Total clinical time spent by myself addressing the patient's medical issues, reviewing all the data, and collaborating with patient's care team: 35 minutes. Charges/Coding Visit Charges Inpatient E&M: 79665 Subs Hosp L2
--- NOTE | 2023-09-25 14:59 | CRPH1.INST_ITS ---
General Education Discussed with Patient CAD and cardiac anatomy and function:: Patient communicates acknowledgment Explanation of diagnoses and procedures:: Patient communicates acknowledgment Sign/Symptoms of MO:: Patient communicates acknowledgment Antiplatelet therapy: Patient communicates acknowledgment Proper use of NTG-SL: Patient communicates acknowledgment Emergency procedures and activation of EMS: Patient communicates acknowledgment Compliance of all prescribed medications: Patient communicates acknowledgment Smoking Risk Factors Patient Nicotine/Smoking Risk Factors Are:: Cigarettes Recommendations Recommendations Include:: Smoking cessation strategies/Smoking packet, Second- hand smoke recommendation and Participation in a smoking cessation program Response Code Nicotine/Smoking Response Code:: Patient communicates acknowledgment Dyslipidemia Risk Factors Patient Dyslipidemia Risk Factors Are:: Total Cholesterol, Triglycerides, HDL and LDL Recommendations Recommendations Include:: Lipid profile not available Response Code Dyslipidemia Response Code:: Patient communicates acknowledgment Overweight/Obesity Recommendations Recommendations Include:: Weight loss of 5-10%, Reduced calorie diet and Exercise 5-7 times/week Response Code Overweight/Obesity:: Patient communicates acknowledgment Hypertension Recommendations Recommendations Include:: Maintain BP <130/85, DASH dietary guidelines, Decrease/maintain normal body weight and Moderation of ETOH Response Code Hypertension:: Patient communicates acknowledgment Heart Disease Risk Factors Patient Heart Disease Risk Factors Are:: Family history of heart disease < 65 years old Recommendations Recommendations Include:: Educated family members of their risk and Educated family members of importance of prevention of heart disease Response Code Heart Disease Response Code:: Patient communicates acknowledgment Diabetes Risk Factors Patient Diabetes Risk Factors Are:: No documented hx of diabetes Recommendations Recommendations Include:: Maintain fasting blood sugars 70-110 md/dL, Maintain HgbA1c of 6% or less, Monitor blood sugar as prescribed, Diabetic dietary guidelines and Decrease/maintain body weight Response Code Diabetes:: Patient communicates acknowledgment Metabolic Syndrome Risk Factors Patient Metabolic Syndrome Risk Factors Are [3 of 5]:: Fasting blood sugar > 100 mg/dL, Waist circumference > 35 [female] or 40 [male], High triglyceride >150, Hypertension and Low HDL <40 [male] or < 50 [female] Recommendations Recommendations Include:: Reinforce compliance to risk factor modifications and Encouraged follow-up with Primary Care Physician Response Code Metabolic Syndrome Response Code:: Patient communicates acknowledgment Sedentary Recommendations Recommendations Include:: Aerobic exercise 5-7 times/week for 20-30 minutes continuously, Benefits of regular exercise, Discussed home walking program and Monitored Outpatient Cardiac Rehab Response Code Sedentary Response Code:: Patient communicates acknowledgment Stress Risk Factors Patient Stress Risk Factors Are:: Patient denies stress as a risk factor Recommendations Recommendations Include:: Identification of stressors, and assessment of coping skills and Stress management techniques Response Code Stress Response Code:: Patient communicates acknowledgment
--- NOTE | 2023-09-25 14:59 | CRPHASE1 ---
Patient Communication Patient Information Former Patient:: Phase I PHII Cardiac Rehab Discussed with Patient:: Yes Guide to Cardiac Rehab Given to Patient:: Yes Cardiac Rehab Facility Choice List Given to Patient:: Yes Communication to Cardiac Rehab Electrician Supervisor Airplane:: Dyllan Carty Sessions:: 36 sessions - 3 days/wk, 12 weeks Cardiac Rehabilitation Info Program Information Cardiac Rehabilitation Program Information: Cardiac Rehab The cardiac rehab team at [facility] consists of highly skilled exercise physiologists, nurses, respiratory therapists and physicians working together with you. Our purpose is to help you have a full recovery and achieve the goals you set for yourself. Over the years many of our patients have returned to activities they assumed they would never do again! We can help restore your confidence and motivation to make lifestyle changes that can have a significant impact on your health and quality of life! We can help answer questions and concerns you may have about exercise, lifestyle, medications, diet, stress and anxiety which are common following a hospitalization. WE monitor ECG and vital signs during exercise and discuss your progress with you and report to your physician(s). Cardiac Rehab is proven to help reduce readmissions, improve functional capacity and lower recurrence of problems with your heart. Our Cardiac Rehab program is Certified by the [place] [employer]-V[employer] and Pulmonary [employer] (AACVPR) and Accredited by the [place] [employer] through our [facility]. You can contact us at . We invite you to call us with your questions or to get started in our program. If you have other questions or concerns be sure to ask your physician/provider during your follow-up visit. WE look forward to seeing you!
[2023-09-25] MEDS: Clopidogrel Bisulfate 300 MG Tablet PO (15:26)
[2023-09-25] MEDS: Metoprolol Tartrate 25 MG Tablet 12.5 MG PO (20:35)
[2023-09-25] MEDS: Atorvastatin Calcium 80 MG Tablet PO (20:35)
[2023-09-25] MEDS: Acetaminophen 325 MG Tablet 650 MG PO (20:36)
[2023-09-26] VITALS (13 sets, daily range): BP systolic 101–125; BP diastolic 53–74; PULSE 52–67; RESP 13–21; TEMP 36.4–37.1; O2SAT 94–100; BMI 26.9
[2023-09-26 04:34] LABS: Hematocrit 33.1 % (37-47); Hemoglobin 10.7 g/dL (12.0-15.0); Mean Corp Hgb Conc 32.3 g/dL (32-36); Mean Corpuscular Hgb 31.3 pg (27.0-32.0); Mean Corpuscular Volume 96.8 fL (81-99); Mean Platelet Vol. 10.6 fl (6.2-12.0); Platelet Count 181 K/mm3 (150-450); RBC Distribution Width CV 13.2 % (11.6-14.6); RBC Distribution Width SD 47.2 fl (35.1-43.9); Red Blood Count 3.42 M/mm3 (4.2-5.4); White Blood Count 4.9 K/mm3 (4.4-11.0)
[2023-09-26 04:55] LABS: ALB/GLOB Ratio 0.8 RATIO (0.9-2.4); AST(SGOT) 77 U/L (15-37); Alanine Aminotransfer ALT/SGPT 19 U/L (13-56); Albumin, Serum 3.1 g/dL (3.2-5.0); Alkaline Phosphatase 110 U/L (45-117); Anion Gap 4 (5-15); BUN 20 mg/dL (7-18); BUN/Creat Ratio 18.3 RATIO (10-20); Calcium,Total 8.2 mg/dL (8.5-10.1); Chloride 108 mmol/L (98-107); Cholesterol 157 mg/dL (200); Creatinine, Serum 1.09 mg/dL (0.55-1.02); EST Glomerular Filtration Rate 54 mL/min (>60); Est Glom Filt Rate - Afr Amer 65 mL/min (>60); Estimated Creatinine Clearance 58.73 ml/min; Globulin 3.8 g/dL (2.2-4.2); Glucose 100 mg/dL (74-106); High Density Lipoprotein 37 mg/dL; Potassium 4.3 mmol/L (3.5-5.1); Protein, Total 6.9 g/dL (6.4-8.2); Sodium Level 137 mmol/L (136-145); Triglycerides 112 mg/dL; Very Low Density Lipoprotein 22 mg/dL (5-40)
--- NOTE | 2023-09-26 09:26 | PCM.PN.CARD ---
Subjective Subjective Denies any complaints. No chest pain. No shortness of breath. Objective Data Vital Signs: Vital Signs Temp Pulse Resp BP Pulse Ox O2 Del Method 98.2 F 57 L 14 118/55 L 100 Room Air 09/26/23 06:00 09/26/23 06:00 09/26/23 06:00 09/26/23 06:00 09/26/23 06:00 09/26/23 06:00 Oxygen Delivery Method Room Air Weight: 176 lb 12.972 oz Body Mass Index (BMI) 26.9 Intake & Output: Intake and Output for Last 24 Hours 09/24/23 09/25/23 09/26/23 23:59 23:59 23:59 Intake Total 1000 / 1000 200 / 200 Balance 1000 / 1000 200 / 200 Lab / Micro Data 09/26/23 04:15 09/26/23 04:15 Labs: Laboratory Results - last 24 hr 09/25/23 08:58: Troponin I High Sens 9306 H* 09/26/23 04:15: WBC 4.9, RBC 3.42 L, Hgb 10.7 L, Hct 33.1 L, MCV 96.8, MCH 31.3, MCHC 32.3, RDW Std Deviation 47.2 H, RDW Coeff of Keyshawn 13.2, Plt Count 181, MPV 10.6, Sodium 137, Potassium 4.3, Chloride 108 H, Carbon Dioxide 25.0, Anion Gap 4 L, BUN 20 H, Creatinine 1.09 H, Estim Creat Clear Calc 58.73, Est GFR (MDRD) Af Amer 65, Est GFR (MDRD) Non-Af 54 L, BUN/Creatinine Ratio 18.3, Glucose 100, Calcium 8.2 L, Total Bilirubin 0.20, AST 77 H, ALT 19, Alkaline Phosphatase 110, Total Protein 6.9, Albumin 3.1 L, Globulin 3.8, Albumin/Globulin Ratio 0.8 L, Triglycerides 112, Cholesterol 157, LDL Cholesterol 98, VLDL Cholesterol 22, HDL Cholesterol 37 L Rhythm Strip Rhythm Strip: Sinus Rhythm Cardiology Labs/Tests 09/26/23 04:15: WBC 4.9, RBC 3.42 L, Hgb 10.7 L, Hct 33.1 L, MCV 96.8, MCH 31.3, MCHC 32.3, Plt Count 181, MPV 10.6, Sodium 137, Potassium 4.3, Chloride 108 H, Carbon Dioxide 25.0, Anion Gap 4 L, BUN 20 H, Creatinine 1.09 H, Est GFR (MDRD) Af Amer 65, Est GFR (MDRD) Non-Af 54 L, BUN/Creatinine Ratio 18.3, Glucose 100, Calcium 8.2 L, Total Bilirubin 0.20, Triglycerides 112, Cholesterol 157, LDL Cholesterol 98, VLDL Cholesterol 22, HDL Cholesterol 37 L Rhythm: EKG: ECHO: Stress Test: Cardiac Cath: PCI: CT Surgery: Holter monitor: EPS: PPM: CXR: Chest CT Scan: Radiography Diagnostic Testing: Radiology Impression Echocardiogram 09/25/23 07:33 Interpretation Summary Normal LV size. Mid-Lateral : Hypokinetic Bileaflet diffuse mitral valve thickening. Stage 1 diastolic dysfunction. The left ventricular ejection fraction is 55 %. Mild segmental systolic dysfunction (see wall motion). Ordering Physician: Stephy Hernandes Referring Physician: Desiree Carty Amy Performed By: Zandra Clark RDCS, RVT Physical Exam Narrative Comfortable. No apparent distress. Heart sounds 1 and 2 noted. Chest clear to auscultation bilaterally. Alert oriented x 3. No ankle edema noted. Right radial pulse 2+. Assessment & Plan Assessment/Plan (1) STEMI (ST elevation myocardial infarction): PLAN: Status post percutaneous intervention to the mid left circumflex and first obtuse marginal. Stable. Asymptomatic. Continue aspirin. Continue Plavix. (2) Coronary artery disease: PLAN: See #1 above. Aspirin, clopidogrel, beta-blockers, statins. (3) Hypertension: PLAN: Beta-blockers, ACEI. (4) Nicotine dependence: PLAN: Counseled to quit. PLAN: Plan Discharge home tomorrow morning if remains stable.
--- NOTE | 2023-09-26 10:00 | EKG12_ITS ---
Test Reason : AM EKG Blood Pressure : / mmHG Vent. Rate : 058 BPM Atrial Rate : 058 BPM P-R Int : 204 ms QRS Dur : 078 ms QT Int : 502 ms P-R-T Axes : 075 -29 010 degrees QTc Int : 492 ms Sinus bradycardia Nonspecific T wave abnormality Prolonged QT Abnormal ECG When compared with ECG of 25-SEP-2023 05:28, MANUAL COMPARISON REQUIRED, DATA IS UNCONFIRMED Confirmed by SHARI SALAZAR, POPPY ([id number]), editor publications CHUY ATKINS ([id number]) on 09/26/2023 1:35:10 PM Referred By: Dyllan Carty Confirmed By:POPPY MCCARTHY MD
[2023-09-26] MEDS: Fluoxetine HCl 40 MG CAPSULE PO (10:42)
[2023-09-26] MEDS: Metoprolol Tartrate 25 MG Tablet 12.5 MG PO ×2 (10:42→20:53)
[2023-09-26] MEDS: Lisinopril 10 MG Tablet PO (10:42)
[2023-09-26] MEDS: Aspirin 81 MG TAB.CHEW PO (10:42)
[2023-09-26] MEDS: Clopidogrel Bisulfate 75 MG Tablet PO (10:42)
[2023-09-26] MEDS: Enoxaparin 40 MG/0.4 ML Syringe SC (10:42)
[2023-09-26 11:05] LABS: Hemoglobin A1c 5.5 % (3.8-5.6)
--- NOTE | 2023-09-26 12:18 | PN.HOSP_ITS ---
Reason for Visit Reason for Visit: Diagnoses Nicotine dependence, unspecified, uncomplicated (09/25/23) Essential (primary) hypertension (09/25/23) ST elevation (STEMI) myocardial infarction of unspecified site (09/25/23) Atherosclerotic heart disease of [place] coronary artery without angina pectoris (09/25/23) Chronic kidney disease, stage 3 unspecified (09/25/23) Subjective Subjective No acute events overnight. Patient seen at bedside this morning, present. Patient was sitting up comfortably in bed, conversing normally, no acute distress. Stated she felt well this morning, denied any acute chest pain or shortness of breath at rest. Stated that cardiology had seen her earlier this morning and was recommending staying in the hospital 1 more day for further monitoring, and she and were fine with this. No other acute concerns this morning. Objective Data Objective Data Vital Signs: Vital Signs Temp Pulse Resp BP Pulse Ox O2 Del Method 98.2 F 63 16 101/62 98 Room Air 09/26/23 10:38 09/26/23 10:42 09/26/23 10:38 09/26/23 10:38 09/26/23 10:38 09/26/23 10:38 Oxygen Delivery Method Room Air Weight: 80.2 kg Body Mass Index (BMI) 26.9 Intake & Output: Intake and Output for Last 24 Hours 09/24/23 09/25/23 09/26/23 23:59 23:59 23:59 Intake Total 1000 / 1000 200 / 200 Balance 1000 / 1000 200 / 200 Lab / Micro Data 09/26/23 04:15 09/26/23 04:15 Labs: Laboratory Results - last 24 hr 09/26/23 04:15: WBC 4.9, RBC 3.42 L, Hgb 10.7 L, Hct 33.1 L, MCV 96.8, MCH 31.3, MCHC 32.3, RDW Std Deviation 47.2 H, RDW Coeff of Keyshawn 13.2, Plt Count 181, MPV 1 0.6, Sodium 137, Potassium 4.3, Chloride 108 H, Carbon Dioxide 25.0, Anion Gap 4 L, BUN 20 H, Creatinine 1.09 H, Estim Creat Clear Calc 58.73, Est GFR (MDRD) Af Amer 65, Est GFR (MDRD) Non-Af 54 L, BUN/Creatinine Ratio 18.3, Glucose 100, Hemoglobin A1c 5.5, Calcium 8.2 L, Total Bilirubin 0.20, AST 77 H, ALT 19, Alkaline Phosphatase 110, Total Protein 6.9, Albumin 3.1 L, Globulin 3.8, Albumin/Globulin Ratio 0.8 L, Triglycerides 112, Cholesterol 157, LDL Cholesterol 98, VLDL Cholesterol 22, HDL Cholesterol 37 L Radiography Diagnostic Testing: Radiology Impression Echocardiogram 09/25/23 07:33 Interpretation Summary Normal LV size. Mid-Lateral : Hypokinetic Bileaflet diffuse mitral valve thickening. Stage 1 diastolic dysfunction. The left ventricular ejection fraction is 55 %. Mild segmental systolic dysfunction (see wall motion). Ordering Physician: Stephy Hernandes Referring Physician: Desiree Carty Amy Performed By: Zandra Clark, HANGCS, RVT Rhythm Strip Rhythm Strip: Sinus Rhythm Physical Exam Const alert, oriented x3, no apparent distress and average body habitus Constitutional Narrative: Pleasant elderly female, sitting up comfortably in bed, conversing normally, no acute distress. General Appearance: cooperative and comfortable HEENT normocephalic, head/scalp atraumatic, hearing grossly normal bilaterally, nasal mucous membranes and turbinates normal and moist oral mucous membranes Eyes PERRL, EOMs intact bilaterally and conjunctivae normal Neck full ROM Chest inspection of chest normal Resp normal respiratory effort, normal air movement, no use of accessory muscles and clear to auscultation bilaterally Cardio regular rate, regular rhythm, no murmurs and peripheral pulses 2+ throughout GI normal to inspection, nondistended, normoactive bowel sounds, soft to palpation, non-tender and non-distended Back/Spine normal ROM Extremity normal to inspection, full ROM and no pedal edema Skin no rashes or lesions noted Neuro moves all extremities and no focal motor deficits Speech: speech normal Psych mental status grossly normal Assessment & Plan Assessment/Plan (1) STEMI (ST elevation myocardial infarction): (2) CKD (chronic kidney disease) stage 3, GFR 30-59 ml/min: PLAN: Plan Patient is a 62-year-old female who presented to [facility] ED on 09/25/2023 with chest pain. 1. STEMI Left heart cath on 09/24 with successful KOLTON x 2 to mid LCx and OM1. Hemodynamic ally stable post cath. Echo on 09/24 showed EF 55%, stage I diastolic dysfunction, mild segmental systolic dysfunction with hypokinesis in mid lateral LV, bileaflet diffuse mitral valve thickening, no other significant abnormalities. A1c 5.5%. Lipid profile with total cholesterol 157, LDL 98, HDL 37. ? Cardiology following. Stable for transfer to PCU on 09/25. Continue aspirin lifelong and clopidogrel for at least 1 year. Started Lopressor 12.5 mg twice daily on 09/24, continued lisinopril 10 mg daily. Also started atorvastatin 80 mg daily. Continue cardiac monitoring. Per cardiology, if patient remains stable tomorrow morning, planning for discharge home. 2. Suspected CKD stage III ? Creatinine 1.33 on admit, improved to 1.09 on hospital day 2. Last creatinine values were from 2021, ranged from 1.1-1.8. Would suspect CKD would be due to longstanding hypertension. Has had good urine output since admission. Continue to monitor urine output. No need to monitor further BMPs. Chronic medical conditions: ? Depression: Stable. Continue home fluoxetine. ? Hypertension: On home lisinopril?hydrochlorothiazide. Current treatment as noted above. ? Tobacco use: Current cigarette smoker, smokes 1 pack/day, 59-btzz-weed history. Encouraged cessation. Nicotine replacement therapy available while inpatient as needed. ? Chronic normocytic anemia: Hemoglobin 11.2 on admit, baseline hemoglobin 10- 12. Stable. DVT prophylaxis: Lovenox CODE STATUS: Full code, verified Expected disposition: Home, 1 to 2 days Total clinical time spent by myself addressing the patient's medical issues, reviewing all the data, and collaborating with patient's care team: 35 minutes. Charges/Coding Visit Charges Inpatient E&M: 55543 Subs Hosp L2
--- NOTE | 2023-09-26 12:51 | CHAPLAIN ---
Type of Pastoral Visit _x__ Initial Visit ___ Follow-up Visit ___ On-call Visit ___ General Patient Visit ___ Spiritual Assessment ___ Family Conference ___ Bereavement ___ Rapid Response ___ Code Blue ___ Other (describe below) Pastoral Care Referral From _x__ Patient ___ Family ___ Nurse ___ Physician ___ Microfilm Operator ___ Business Line Controller ___ Other (describe below) Sacrament/Intervention _x__ Active listening ___ Anointing ___ Episcopalian ___ Bereavement ___ Communion ___ Sylvia exploration ___ ___ Life review ___ Prayer ___ Reconciliation ___ Sacrament of Sick ___ Supportive presence ___ Wedding ___ Other (describe below) Pastoral Comments patient reports that she is doing much better than yesterday, has a large family, her just exited the building, and that she has no new concerns
[2023-09-26] MEDS: Acetaminophen 325 MG Tablet 650 MG PO (17:13)
[2023-09-26] MEDS: Atorvastatin Calcium 80 MG Tablet PO (20:53)
[2023-09-27 05:05] VITALS: BMI 27.1
[2023-09-27 05:10] VITALS: BP 110/53; PULSE 59; RESP 11; TEMP 36.9; O2SAT 96
[2023-09-27 09:15] VITALS: BP 126/54; PULSE 62; RESP 19; TEMP 36.5; O2SAT 100
[2023-09-27] MEDS: Aspirin 81 MG TAB.CHEW PO (09:19)
[2023-09-27 09:20] VITALS: PULSE 62
[2023-09-27] MEDS: Lisinopril 10 MG Tablet PO (09:20)
[2023-09-27] MEDS: Clopidogrel Bisulfate 75 MG Tablet PO (09:20)
[2023-09-27] MEDS: Metoprolol Tartrate 25 MG Tablet 12.5 MG PO (09:20)
[2023-09-27] MEDS: Fluoxetine HCl 40 MG CAPSULE PO (09:20)
[2023-09-27] MEDS: Enoxaparin 40 MG/0.4 ML Syringe SC (09:21)
[2023-09-27] MEDS: Acetaminophen 325 MG Tablet 650 MG PO (09:28)
--- NOTE | 2023-09-27 09:57 | PCM.PN.CARD ---
Subjective Subjective Denies any complaints. No chest pain. No shortness of breath. Objective Data Vital Signs: Vital Signs Temp Pulse Resp BP Pulse Ox O2 Del Method 97.7 F L 62 19 H 126/54 H 100 Room Air 09/27/23 09:15 09/27/23 09:20 09/27/23 09:15 09/27/23 09:15 09/27/23 09:15 09/27/23 09:15 Oxygen Delivery Method Room Air Weight: 178 lb 12.718 oz Body Mass Index (BMI) 27.1 Intake & Output: Intake and Output for Last 24 Hours 09/25/23 09/26/23 09/27/23 23:59 23:59 23:59 Intake Total 1000 / 1000 200 / 200 400 / 400 Balance 1000 / 1000 200 / 200 400 / 400 Lab / Micro Data 09/26/23 04:15 09/26/23 04:15 Labs: Laboratory Results - last 24 hr 09/26/23 04:15: Hemoglobin A1c 5.5 Rhythm Strip Rhythm Strip: Sinus Rhythm Cardiology Labs/Tests 09/26/23 04:15: Hemoglobin A1c 5.5 Rhythm: EKG: ECHO: Stress Test: Cardiac Cath: PCI: CT Surgery: Holter monitor: EPS: PPM: CXR: Chest CT Scan: Physical Exam Narrative Comfortable. No apparent distress. Heart sounds 1 and 2 noted. Chest clear to auscultation bilaterally. Alert oriented x 3. No ankle edema noted. Assessment & Plan Assessment/Plan (1) STEMI (ST elevation myocardial infarction): PLAN: Status post percutaneous intervention to the mid left circumflex and first obtuse marginal. Stable. Asymptomatic. Continue aspirin. Continue Plavix. (2) Coronary artery disease: PLAN: See #1 above. Aspirin, clopidogrel, beta-blockers, statins. (3) Hypertension: PLAN: Beta-blockers, ACEI. (4) Nicotine dependence: PLAN: Counseled to quit. PLAN: Plan Discharge home today.
--- NOTE | 2023-09-27 10:07 | DCINST_ITS ---
Discharge Instructions Diet Discharge Diet: No restrictions Activity Discharge Activity: No Restrictions Weight Bearing Status: Full weight bearing Follow Up Care Test Results: Test results from this visit will be discussed in further detail at your follow- up appointment, if applicable. Discharge Plan Admission Admit Date/Time: 09/25/23 05:52 Primary Reason for Your Visit: chest pain Attending Provider: Pritesh Villanueva Primary Care Provider: Stelal Ahuja Consulting Providers: Stephy Hernandes; Dyllan Carty Discharge Orders/Prescriptions Prescriptions: New atorvastatin 80 mg Tablet 80 mg PO QHS 90 Days Qty: 90 3RF clopidogrel 75 mg Tablet 75 mg PO DAILY 90 Days Qty: 90 3RF lisinopril 10 mg Tablet 10 mg PO DAILY 30 Days Qty: 30 2RF aspirin 81 mg Tablet,Chewable 81 mg PO DAILY 90 Days Qty: 90 3RF metoprolol tartrate 25 mg Tablet 12.5 mg PO BID 30 Days Qty: 30 2RF Continued fluoxetine 40 mg capsule 40 mg PO DAILY aspirin [Srinivasan Chewable Aspirin] 81 mg tablet,chewable 1 tab PO DAILY Discontinued lisinopril-hydrochlorothiazide 20-12.5 mg tablet 1 tab PO DAILY Referrals / Follow Up: Stella Ahuja MD [Primary Care Provider] - Disposition Disposition (needs filled in before D/C Order can be placed): Home, Self Care
--- NOTE | 2023-09-27 10:14 | DS.PCM_ITS ---
Providers Date of Admission: 09/25/23 Date of Discharge: 09/27/23 Primary Care Physician: Dr. Stella Ahuja MD Consultations 09/25/23 05:58 Consult: Cardiology Stat Consulting Provider: Dyllan Carty Reason for Consult: Chest Pain, STEMI EMERGENT Consult: Yes MD Notified: Yes Date Notified: 09/25/23 Time Notified: 05:53 Method of Notification: ED Physician Initiated Reason For Visit: STEMI Diagnosis Discharge Diagnosis (1) STEMI (ST elevation myocardial infarction): Status: Acute Code(s): I21.3 - ST elevation (STEMI) myocardial infarction of unspecified site (2) Coronary artery disease: Status: Acute Code(s): I25.10 - Atherosclerotic heart disease of [place] coronary artery without angina pectoris (3) Hypertension: Status: Chronic Code(s): I10 - Essential (primary) hypertension (4) Nicotine dependence: Status: Acute Code(s): F17.200 - Nicotine dependence, unspecified, uncomplicated Medications at Discharge Home Medications aspirin 81 mg chewable tablet (Srinivasan Chewable Low Dose Aspirin) 1 tab PO DAILY 09/25/23 fluoxetine 40 mg capsule 40 mg PO DAILY 09/25/23 aspirin 81 mg chewable tablet 81 mg PO DAILY 90 days #90 tabs 09/27/23 atorvastatin 80 mg tablet 80 mg PO QHS 90 days #90 tabs 09/27/23 clopidogrel 75 mg tablet 75 mg PO DAILY 90 days #90 tabs 09/27/23 lisinopril 10 mg tablet 10 mg PO DAILY 30 days #30 tabs 09/27/23 metoprolol tartrate 25 mg tablet 12.5 mg (1/2 x 25 mg) PO BID 30 days #30 tabs 09/27/23 Hospital Course Operations None Procedures Cardiac catheterization, EKG and Transthoracic echo Summary of Care Provided Minutes Spent on Discharge: 35 Hospital Course: Patient is a 62-year-old female who presented to [facility] ED on 09/25/2023 with chest pain. Hospital course as noted below. Patient discharged home with no therapy needs in stable condition on 09/26. 1. STEMI Left heart cath on 09/24 with successful KOLTON x 2 to mid LCx and OM1. Hemodynamically stable post cath. Echo on 09/24 showed EF 55%, stage I diastolic dysfunction, mild segmental systolic dysfunction with hypokinesis in mid lateral LV, bileaflet diffuse mitral valve thickening, no other significant abnormalities. A1c 5.5%. Lipid profile with total cholesterol 157, LDL 98, HDL 37. ? Cardiology followed. Patient did very well post cath, remained hemodynamically stable for remainder of admission, no ectopy noted on cardiac monitoring. Per cardiology, will need aspirin lifelong and clopidogrel for at least 1 year. Started on Lopressor 12.5 mg twice daily, reduced dose of lisinopril 10 mg daily (was on 20 mg daily at home) with good blood pressure and heart rate control. Continue aspirin, clopidogrel, Lopressor, lisinopril and atorvastatin on discharge. Close outpatient follow-up with cardiology. 2. Suspected CKD stage III ? Creatinine 1.33 on admit, improved to 1.09 on hospital day 2. Last creatinine values were from 2021, ranged from 1.1-1.8. Would suspect CKD would be due to longstanding hypertension. Creatinine remained stable at baseline on discharge, patient had good urine output throughout admission. Outpatient follow-up with PCP. Chronic medical conditions: ? Depression: Stable. Continue home fluoxetine. ? Hypertension: On home lisinopril?hydrochlorothiazide. Continue Lopressor and lisinopril on discharge as noted above. ? Tobacco use: Current cigarette smoker, smokes 1 pack/day, [id number] history. Encouraged cessation. Nicotine replacement therapy available while inpatient as needed. ? Chronic normocytic anemia: Hemoglobin 11.2 on admit, baseline hemoglobin 10- 12. Stable. Total clinical time spent by myself addressing the patient's medical issues, reviewing all the data, and collaborating with patient's care team: 35 minutes. Physical Exam Const alert, oriented x3, no apparent distress and average body habitus Constitutional Narrative: Pleasant elderly female, sitting up comfortably in bed, conversing normally, no acute distress. General Appearance: cooperative and comfortable HEENT normocephalic, head/scalp atraumatic, hearing grossly normal bilaterally, nasal mucous membranes and turbinates normal and moist oral mucous membranes Eyes PERRL, EOMs intact bilaterally and conjunctivae normal Neck full ROM Chest inspection of chest normal Resp normal respiratory effort, normal air movement, no use of accessory muscles and clear to auscultation bilaterally Cardio regular rate, regular rhythm, no murmurs and peripheral pulses 2+ throughout GI normal to inspection, nondistended, normoactive bowel sounds, soft to palpation, non-tender and non-distended Back/Spine normal ROM Extremity normal to inspection, full ROM and no pedal edema Skin no rashes or lesions noted Neuro moves all extremities and no focal motor deficits Speech: speech normal Psych mental status grossly normal Weight / BMI Weight Weight: 81.1 kg Body Mass Index (BMI) 27.1 ABG / Lab / Microbiology Data 09/26/23 04:15 09/26/23 04:15 Laboratory: Laboratory Results - last 24 hr 09/26/23 04:15: Hemoglobin A1c 5.5 D/C Instructions Discharge Diet: No restrictions Weight Bearing Status: Full weight bearing Meaningful Use Info Meaningful Use Diagnoses (Choose all that apply): AMI AMI/Post PCI/Angioplasty Aspirin given w/in 24hrs of arrival?: Yes ASA at discharge?: Yes Statins at discharge?: Yes Yoel/ARB at discharge?: Yes Beta Deja at discharge?: Yes Done w/ Acute VA measure.: Yes Discharge Plan Admission Admit Date/Time: 09/25/23 05:52 Primary Reason for Your Visit: chest pain Attending Provider: Pritesh Villanueva Primary Care Provider: Stella Ahuja Consulting Providers: Stephy Hernandes; Dyllan Carty Discharge Orders/Prescriptions Prescriptions: New atorvastatin 80 mg Tablet 80 mg PO QHS 90 Days Qty: 90 3RF clopidogrel 75 mg Tablet 75 mg PO DAILY 90 Days Qty: 90 3RF lisinopril 10 mg Tablet 10 mg PO DAILY 30 Days Qty: 30 2RF aspirin 81 mg Tablet,Chewable 81 mg PO DAILY 90 Days Qty: 90 3RF metoprolol tartrate 25 mg Tablet 12.5 mg PO BID 30 Days Qty: 30 2RF Continued fluoxetine 40 mg capsule 40 mg PO DAILY aspirin [Srinivasan Chewable Aspirin] 81 mg tablet,chewable 1 tab PO DAILY Discontinued lisinopril-hydrochlorothiazide 20-12.5 mg tablet 1 tab PO DAILY Referrals / Follow Up: Stella Ahuja MD [Primary Care Provider] - Edgar Hollingsworth DREDGE OPERATOR SUPERVISOR, DREDGE OPERATOR SUPERVISOR-C [Med Staff - [facility]] - 10/09/23 3:00 pm Disposition Disposition (needs filled in before D/C Order can be placed): Home, Self Care Charges/Coding Visit Charges Inpatient E&M: 35490 Disch Hosp >30min
--- NOTE | 2023-09-27 10:40 | CASEMGMT ---
RN CM into pt room, pt sitting up in bed in no distress and pt at bedside. Pt denies any homegoing needs at this time. Pt is ready for dc today. Pt nurse updated.
[2023-09-27 11:15] VITALS: BP 117/56; PULSE 54
--- NOTE | 2023-11-11 11:56 | ECQM.STEMI ---
STEMI STEMI ED Door Time / Other REG STEMI EKG Time (1) STEMI (ST elevation myocardial infarction): Resolved 09/25/23 05:21 Balloon/Aspiration Date-Time Date of Balloon/Aspiration:: 09/25/23 Time of Balloon/Aspiration:: 06:34
== END 2023-09-27 11:20 | disposition home or self-care (01) | DRG 322 ==
LOC: ED 05:42 → ICU 06:08
PROVIDERS: Admitting Provider Family Medicine; Emergency Provider Emergency Medicine; PCP Family Medicine; Referring Provider Internal Medicine Cardiovascular Disease; Visit Provider Hospitalist
DX: I21.3 ST elevation (STEMI) myocardial infarction of unspecified site (principal); D64.9 Anemia, unspecified; N18.30 Chronic kidney disease, stage 3 unspecified; I12.9 Hypertensive chronic kidney disease with stage 1 through stage 4 chronic kidney disease, or unspecified chronic kidney disease; F32.A Depression, unspecified; F17.210 Nicotine dependence, cigarettes, uncomplicated; M79.7 Fibromyalgia; I25.10 Atherosclerotic heart disease of native coronary artery without angina pectoris; Z79.02 Long term (current) use of antithrombotics/antiplatelets; Z79.82 Long term (current) use of aspirin
CPT/HCPCS: 80048; 80053; 80061; 83036; 83735; 84484; 85025; 85027; 85347; 85610; 85730; 92929; 92941; 93005; 93306; 93458; 94668; 94762; 97802; 99152; 99252; 99285; J7030; J7040; Q9967; A4216; C1725; C1769; C1874; C1887; C1894; C9601; C9606; G0463; J2405

== ENCOUNTER → 2023-10-18 | Outpatient (CLI) | payer OTHER, SELFPAY ==
--- NOTE | 2023-10-18 09:58 | PCM.CR.HP2 ---
CR - History & Physical General Arrival date:: 10/18/23 Arrival time:: 09:58 Date of Referral:: 09/26/23 Date of CR Evaluation:: 10/18/23 Referring Physician: Dr. Carty Primary Diagnosis: LA-STEMI, PCI with coronary stent History of Present Cardiac Event Onset Date Acute Myocardial Infarction within 12 months:: Yes PTCA or coronary stenting:: Yes (onset 09/25/2023) Medications Ambulatory Orders ?Medication ?Instructions ?Recorded fluoxetine 40 mg capsule 40 mg PO DAILY 09/25/23 aspirin 81 mg chewable tablet 81 mg PO DAILY 90 days #90 tabs 09/27/23 atorvastatin 80 mg tablet 80 mg PO QHS 90 days #90 tabs 09/27/23 clopidogrel 75 mg tablet 75 mg PO DAILY 90 days #90 tabs 09/27/23 lisinopril 10 mg tablet 10 mg PO DAILY 30 days #30 tabs 09/27/23 metoprolol tartrate 25 mg tablet 12.5 mg (1/2 x 25 mg) PO BID 30 09/27/23 days #30 tabs ibuprofen 200 mg tablet 400 mg PO TID PRN 10/09/23 Allergies Allergies Penicillins Adverse Reaction (Unknown, Verified 10/09/23 14:49) Yeast infections Sleep Disorder Evaluation Hx of Sleep Apnea: No Do you snore loudly (louder than talking or can be heard through closed doors)?: No Do you often feel tired/ fatigued/ sleepy during daytime?: Yes Has anyone observed you stop breathing during sleep?: No History of Hypertension (for STOP score): Yes STOP Results: Positive Advanced Directives Advanced Directives Power of Administrative Assistant Receptionist: No Living Will: No Advance Directives Information Provided: No Advance Directives on File: No DNR Order?:: No Past Medical History Covid-19 Screening Physicial Symptoms Other Clinical Concerns Exposure Risk Pertinent Comorbidities Has a serious heart condition:: Yes Past Medical Illness Past Medical History Lupus M32.9 CKD (chronic kidney disease) stage 3, GFR 30-59 ml/min N18.30 Nicotine dependence F17.200 Coronary artery disease I25.10 Chronic anemia D64.9 Anxiety and depression F41.9, F32.A Fibromyalgia M79.7 Hypertension I10 Tobacco use Z72.0 Past Surgical History Past Surgical History (Updated 10/09/23 @ 14:53 by Violetta Babin) History of appendectomy Z90.49 Stented coronary artery (09/25/23) Z95.5 [place] KOLTON to mid LCX 2.5 X 15, and [place] KOLTON to mid OM1 2.5 X 8- 09/25/23 History of back surgery Z98.890 S/P right knee arthroscopy Z98.890 History of cholecystectomy Z90.49 Surgical History: - (The patient has undergone the aforementioned lower extremity venous procedures. She is also undergone right knee arthroscopic surgery in 2000. Laparoscopic cholecystectomy was performed in 1995. Appendectomy was performed at the age of 5. The patient is allergic to Zoloft and penicillin. Medications have been documented elsewhere by the nursing staff. The patient is a Ab0. The patient's father is 82 years of age with a history of kidney cancer. Her mother 79 years of age with a history of hypertension.) Family History Summary Family History (Updated 10/09/23 @ 15:10 by Edgar Hollingsworth NP, REGULATORY ASSISTANT-C) Mother CAD (coronary artery disease) Heart disease Hypertension Anxiety and depression Father Melanoma Sister Cancer Colon Brother Cancer Prostate Social History Smoking History Smoking Status: Former smoker Years Smokin Packs Smoked per Day: 1 Hx Smoking Cessation Date: 09/25/23 Alcohol Use Alcohol Usage: Yes (rare) Occupation Occupation (List type of work in comments):: Retired Hobbies, Recreation, Social Activities Hobbies: Sewing Recreational Activities: I am able to engage in all my recreational activities Social Environment Status Marital Status: Current Living Arrangements Living Environment:: Spouse Children How many children do you have?: 2 Do any of your children live nearby?: Yes Safety Do you feel safe in your surroundings?: Yes Assistance Do you need any assistance at home?: no Review of Systems Review of Systems Hints Review of Present Symptoms: Reports Shortness of Breath with Exertion, PVD, Wound Healing and Fatigue; Denies Shortness of Breath at Rest, Operative Discomfort, Angina, Dizziness/Lightheadedness, Heart Arrhythmia/Irregularities, Appetite - Normal, Appetite - Special Diet, Sleep - Normal or Sexual Changes Pain Is Patient Pain Free?: No Pain Location: other (joints) Pain Level: 10/10 Risk Factor Assessment Chief Complaint Chief Complaint: LA-STEMI, PCI with coronary stent Vital Signs Pulse Ox: 99 Blood Pressure: 160/88 Pulse Pulse Rate: 51 Pulse Rhythm: Regular Hypertension How long have you been treated?: about 2 years Blood Pressure Sitting - Left Arm: 160/88 Obesity Height: 5 ft 8 in Weight:: 178 lb Weight in Pounds: 178.0 lbs Body Mass Index (BMI): 27.0 Nutritional Referral for Obesity: No Physical Inactivity Physical Inactivity: None Risk Stratification Risk Guidelines: Moderate Risk: Risk Factor for Dyslipidemia, Risk Factor for Diabetes, Risk Factor for Obesity and Risk Factor for Sedentary Lifestyle and Highest Risk: Risk Factor for Smoking, Risk Factor for Hypertension and Risk Factor for Depression For Smoking Smoking Risk Guidelines For Dyslipidemia Dyslipidemia Risk Guidelines For Diabetes Mellitus Diabetes Risk Guidelines For Obesity/Overweight Obesity/Overweight Risk Guidelines For Hypertension Hypertension Risk Guidelines For Sedentary Lifestyle Sedentary Lifestyle Risk Guidelines For Depression Depression Risk Guidelines Family History Family History (Updated 10/09/23 @ 15:10 by Edgar Hollingsworth REGULATORY ASSISTANT, REGULATORY ASSISTANT-C) Mother CAD (coronary artery disease) Heart disease Hypertension Anxiety and depression Father Melanoma Sister Cancer Brother Cancer Motivation Motivation to Participate On a scale of 1 to 10, how prepared are you to commit to attending program?: 6 What do you see as barriers to successfully being able to complete the program?: nothing What do you see as the benefits of succesfully completing the program? In other words, what do you hope to get out of participating in the program?: improved health Are there issues you are dealing with that will interfere with completing the program?: no Do you have a spouse or signficant other, family or friends who will help support you to complete the program?: yes
[2023-10-18 10:05] VITALS: O2SAT 99
--- NOTE | 2023-10-18 10:05 | CR.ITP_ITS ---
Diagnosis General Information Admitting Diagnosis: PR-STEMI, PCI with coronary stent Personal Learning Style:: Audio/Visual Stage of change r/t lifestyle modifications:: Contemplation Gave educational material for:: Treating Heart Disease, How The Heart Works, What it means to have Heart Disease, How Coronary Artery Disease is Diagnosed, Heart Procedures, What Heart Medications Do, Risk Factors & Modifications, Living an Active Life, Nutrition, Emotions & Heart Disease, Stress Management & Relaxation and Sleep Disorders & Heart Disease Education/Goals Cardiac Rehabilitation Goals Personal Goals: Initial Assessment: Improve energy level, Improve knowledge of cardiac disease, Improve muscle strength and endurance, Improve diet and eating habits (eat healthier) and Control risk factors (learn risk factor modification) Scale for measuring improvement of personal goals Diagnosis & Disease Process Outcomes/Goals: Pt IDs own risk factors & lifestyle modifications by Session 10, Verbalizes symptoms of angina & response by session 3., Pt independently manages and Other Additional Outcomes/Goals: Plan/Interventions: Assist Pt to ID & engage in lifestyle modification to reduce CVD risk, Instruct on individual risk factors, Review symptoms of angina & emergency actions, Review secondary diagnosis & identify educational needs. and Other see comment 30 day Reassessments:: Not Met 30 day Reassessments:: Not Met 30 day Reassessments:: Not Met 30 day Reassessments:: Not Met Final Reassessments:: Not Met Safety Referral to Physical Therapy: No Referral to [facility] Case Management: No Fall Risk Assessed:: Yes Assistive Devices:: None Exercise - Initial Assessment Visit Date of Eval: 10/18/23 (initial eval ) Mets: Pre-: >3 METS for 30 minutes by discharge, >5 METS for 30 minutes by discharge, >7 METS for 30 minutes by discharge and Unable to meet goal due to: (see comment below) Physician Prescribed Exercise Modalities: Treadmill, Rower, Airdyne, NuStep, SciFit and Lateral Flame Degreaser Frequency: 3x/week for 12 weeks [36 sessions] Intensity: 60-80% of age predicted maximum heart rate reserve Duration: 30 - 45 minutes Current METSs:: 3 Target Heart Rate:: 102-118 Resting Blood Pressure: 160/88 EKG Type: SB Outcomes & Goals Goals:: Verbalizes understanding of THR, RPE & goal METS by session 6, Documents in home exercise log/reports 30 min aerobic 5 day/wk by DC, Demonstrates accurate pulse taking by DC and Other additional outcome/goals: see below Intervention & Plan Exercise Program Goals: Instruct on personal THR & RPE, Instruct on MET level & personal MET goal, Show patient to take own pulse /validate performance until accurate, Instruct on home exercise and Other additional plan/int Physical Activity Home Exercise Physical Activity - Home Exercise: Safe Exercise, Warm-up, Self-monitoring, Cool-Down, Home Exercise > 30 min Daily and Sitting Time <3 hours/daily Outcomes & Goals Outcomes/Goals: Demonstrates correct Warm-up/exercise Cool-Down (S3) if = 2.5 METs, Verbalizes symptoms of exercise intolerance by Session 3 (S3), Demonstrate safe equipment use (S3) & follows exercise prescrition (6) and Other: See below Intervention & Plan Plan/Intervention: Instruct warm-up & cool-down if exercising at > 2 METs, Instruct on symptoms of exercise intolerance & actions to take, Instruct & monitor on saf, Assess intial functional capacity & safety risk and Other See below Nutrition - Initial Assessment Program Goals Nutrition Program Goals Patient has diagnosis of Hyperlipidemia (ICD E78)?: No Visit Date of Eval: 10/18/23 (initial eval ) Cholesterol/Lipids (Other Core Measures) Determine presence & major risk factors that modify LDL goal: Cigarette smoking, Hypertension or hypertensive medication, Low HDL cholesterol <40 mg/dL*, Family history of premature CHD in Male < 55 years: female <65 yearsFa and Age men > 45 years; women >/= 55 years Outcomes/Goals: Pt IDs own risk factors & lifestyle modifications by Session 10, Verbalizes symptoms of angina & response by session 3., Pt independently manages and Other Additional Outcomes/Goals: Intervention/Plan: Advocate for lipid panel cholesterol medication if applicable, Instruct on personal lipid levels & lipid goals/NCEP guidelines, Instruct on cholesterol and Other additional plan/int Referral to dietitian:: No Diabetes (Other Core Measures) Diabetes Type: Not Applicable Weight Mgt (Other Care) Height: 5 ft 8 in Weight:: 178 lb BMI: 27.0 Diagnosis Overweight/Obesity BMI> 30% ICD-10 E66: No Diagnosis High BMI/Morbid Obesity BMI> 35% ICD-10 Z68: No Outcomes/Goals: Pt sets, maintains & shows weight loss goal & trend during rehab and Other additional outcomes/goals Intervention/Plan: Instruct on ideal BMI & set weight loss goal w/patient, Assist pt to ID & incorporate diet changes for weight loss by S9, Refer to Structured Weight Loss program as appropriate, Encourage goal of using 250- 300dcal per session for weight loss and Other additional plan/interventions Healthy Eating Habits Will attend diet classes:: Yes Outcomes/Goals:: Consume diet rich in vegs,fruits,whole grain/high fiber,fish,lean meat, Limit sat/trans fats,cholesterol & added salts & sugars and Other additional outcome/goals: Intervention/Plan:: Assess current eating habits and Other Additional plan/in terventions Education Gave educational materials for:: Signs & symptoms of hypoglycemia, Signs & symptoms of hyperglycemia, Relate diabetes to coronary artery disease and Healthy eating Core - Initial Assessment Visit Date of Eval: 10/18/23 (initial eval ) Medication Compliance Preventative Medication(s):: Aspirin, CASEY inhibitor, Clopidogrel/P2Y12 inhibit, Statin/lipid and Beta rafa H/O mental health issues: depression, anxiety, or addiction?: Yes Doesn?t believe in the benefits of treatment?: No Believes medications are unnecessary or harmful?: No Has a concern about medication side effects?: No Expresses concern over the cost of medications?: No Outcomes/Goals: Verbalizes medications,desired effect & common side effects @ DC, Pt self-reports following medication regimen, Keeps card in wallet w/medications listed by DC and Other additional outcome/goals: Interventions/plans: Instruct on medication effects & side effects, Review medication list w/patient every two weeks, Instruct importance of taking meds as ordered & assist problem solving and Other additional Tobacco Use Tobacco Use: Non-smoker How long ago did you quit using tobacco products?: Less than 6 months ago (Pt has stopped smoking this September) How many cigarettes do you smoke per day?: 20 Years Smokin Outcomes/Goals: Smoking cessation achieved or maintained by discharge, Identify aids/strategies for achieving smoking cessation by session 6 and Other additional outcome/goals Interventions/plan: Instruct on effects of smoking & provide smoking cessation resource, Assist pt to set quit date & provide encouragement, Assist pt to develop strategies to achieve/maintain quit date, Assist pt w/nicotine replacement & medication for cessation success and Other additional plan/interventions Hypertension Hypertension Diagnosis:: Hypertension ICD-10 I10 [employer] Hypertension Guidelines Outcomes/Goals: Able to verbalize/achieve optimal blood pressure <130/80, Incorporates diet changes & exercise for blood pressure control by DC and Other additional outcomes/goals Interventions/plan: Instruct on optimal blood pressure, hypertension & medications, Instruct on effects of sodium, alcohol, stress, exercise &hypertension and Other additional plan/interventions Tobacco Cessation Referral Smoking Cessation Referral:: No Individual Education/Counseling:: No Education Schedule Given:: Yes Psychosocial - Initial Assess VIsit Date of Eval: 10/18/23 (initial eval ) History of previous Mental disease:: Yes History of Emotional Disorders: Anxious and Depression Target Goals Target Goals Outcomes/Goals: See list Psychosocial Outcomes/Goals:: ID's personal stressors & 2 strategies to manage stress by discharge and Other Additional outcome/goals: Intervention/Plan: See List Interventions/Plan:: Assess stressors,coping strategies & signs of derpression on admission, Instruct/assist pt to develop coping & personal stress Mgt strategies, Refer to Behavioral Health if appropriate, Refer to Physician if appropriate, Instruct patient to recognize signs & symptoms of depression, Instruct patient to recog and Other additional plan/intervention Patient Health Questionnaire PHQ-9 Screening Initial Assessment: 1. Little interest or pleasure in doing things: Several days 3. Trouble falling or staying asleep, or sleeping too much: Nearly every day 4. Feeling tired or having little energy: Nearly every day 5. Poor appetite or overeating: Nearly every day 6. Feeling bad about yourself -- or that you are a failure or have let yourself or your family down: Several days 7. Trouble concentrating on things, such as reading the newspaper or watching television: More than half the days 8. Moving or speaking so slowly that other people could have noticed. Or the opposite - being so fidgety or restless that you have been moving around a lot more than usual: Several days 9. Thoughts that you would be better off , or of hurting yourself in some way: Not at all How difficult have these problems made it for you to do your work, take care of things at home, or get along with other people?: Somewhat difficult Total Score: 14 RIN-Q SV Test Statements CAD is a disease of the arteries in the heart: False Examples of risk factors for heart disease: True Angina is chest pain or discomfort: True The benefits of resistance training include: I Don't Know Eating more meat and dairy products: I Don't Know Anti-platelet medications such as aspirin are important: I Don't Know The only effective way to manage stress: True An exercise warm-up slowly increases heart rate: I Don't Know Prepared, processed foods usually have high sodium: True Depression is common after a heart attack: True The statin medications lower cholesterol: I Don't Know To control blood pressure, lower the amount of sodium: True If someone gets chest discomfort during walking: I Don't Know Transfats are partially hydrogenated vegetable oils: I Don't Know Sleep apnea that is not treated increases the risk: I Don't Know To control cholesterol, one should become a vegetarian: I Don't Know Someone knows if he/she is exercising at the right level: I Don't Know Diabetes cannot be prevented with exercise & health eating: I Don't Know Stress is a large risk for heart attack: True A diet that can help lower blood pressure is rich in: True Total Score Total Correct Responses: 8 Self-Efficacy 6-Item Scale Initial Assessment: We would like to know how confident you are in doing certain activities. Please select your confidence level for: Fatigue Select Number: 5 Physical Discomfort or Pain Select Number: 5 Emotional Distress Select Number: 5 Other Symptoms or Health Problems Select Number: 5 Different Tasks and Activities Select Number: 5 Medication Select Number: 5 Total Score:: 5 Nutrition Survey Nutrition Survey Instructions Scoring Instructions Nutrition Survey Initial: Have you lost >10 lbs over the past 2 months without trying?: Yes Are you following a special diet at home for diabetes, low fat, or low salt?: No Are you interested in meeting with a dietitian for help understanding your diet?: Yes Do you eat less than 3 meals a day?: Yes Do you eat fatty meats (weir, sausage, ribs, etc), fried foods, desserts, large amounts of salad dressings, margarine, butter, or cheese most days?: Yes Do you have food allergies? [Enter types in comment field]: Yes Do you eat in restaurants more than 3 times a week?: Yes Do you season food with salt, seasoning salt, or garlic salt?: Yes Do you used canned, boxed, frozen meals, or soups, seasoning packets?: Yes Total Score:: 8 Exercise - Final/Discharge Physician Prescribed Exercise Modalities: Treadmill, Rower, Airdyne, NuStep, SciFit and Lateral Flame Degreaser Frequency: 3x/week for 12 weeks [36 sessions] Intensity: 60-80% of age predicted maximum heart rate reserve Current METSs:: 3 Target Heart Rate:: 102-118 Nutrition - 30-Day Assessment Weight Mgt (Other Care) Height: 5 ft 8 in Weight:: 178 lb BMI: 27.0 Nutrition - 60-Day Assessment Weight Mgt (Other Care) Height: 5 ft 8 in Weight:: 178 lb BMI: 27.0 Core - 30-Day Assessment Tobacco Use Years Smokin Psychosocial - 30-Day Assess Target Goals Target Goals Psychosocial - 60-Day Assess Target Goals Target Goals Psychosocial - 90-Day Assess Target Goals Target Goals Psychosocial - Final Assessmen Target Goals Target Goals Nutrition - 90-Day Assessment Weight Mgt (Other Care) Height: 5 ft 8 in Weight:: 178 lb BMI: 27.0 Nutrition - Final Assessment Program Goals Patient has diagnosis of Hyperlipidemia (ICD E78)?: No Weight Mgt (Other Care) Height: 5 ft 8 in Weight:: 178 lb BMI: 27.0
[2023-10-18 10:26] VITALS: BMI 27.0
[2023-10-18 10:28] VITALS: BP 160/88; PULSE 51; BMI 27.0
[2023-10-18 11:02] VITALS: BP 160/88
== END | disposition home or self-care (01) ==
LOC: CR 09:49
PROVIDERS: PCP Family Medicine; Referring Provider Internal Medicine Cardiovascular Disease; Visit Provider Internal Medicine Cardiovascular Disease
DX: Z00.00 Encounter for general adult medical examination without abnormal findings (principal)

== ENCOUNTER → 2023-11-12 | Outpatient (CLI) | payer OTHER, SELFPAY ==
[2023-10-18 10:28] VITALS: BMI 27.0
--- NOTE | 2023-11-12 10:53 | CDU_ITS ---
Reason For Study: Stenosis Rt. Velocities/BP Lt. Velocities/BP Prox CCA 60.7/12.6 cm/sec. Prox CCA 71.8/15.7 cm/sec. Mid CCA 56/15.4 cm/sec. Mid CCA 72.9/15.7 cm/sec. Dist CCA 45.6/11.6 cm/sec. Dist CCA 52/12.4 cm/sec. Prox ICA 51.3/17.3 cm/sec. Prox ICA 55.3/14.6 cm/sec. Mid ICA 47.5/17.3 cm/sec. Mid ICA 64.1/22.3 cm/sec. Dist ICA 99.2/20.1 cm/sec. Dist ICA 75.1/30 cm/sec. Rt. ICA/CCA = 1.77. Lt. ICA/CCA = 1.05. Prox ECA 59.8/6.9 cm/sec. Prox ECA 64.1/5.8 cm/sec. Rt. Vert. 55.3/14.6 cm/sec. Lt. Vert. 39.5/9.2 cm/sec. Right Extracranial There is intimal thickening but no significant atherosclerotic plaque noted in the right common carotid artery. There is homogeneous, smooth atherosclerotic plaque noted in the right internal carotid artery. There is intimal thickening but no significant atherosclerotic plaque noted in the right external carotid artery. Antegrade flow is noted in the right vertebral artery. Left Extracranial There is homogeneous, smooth atherosclerotic plaque noted in the left common carotid artery. There is heterogeneous, irregular atherosclerotic plaque noted in the left internal carotid artery. There is intimal thickening but no significant atherosclerotic plaque noted in the left external carotid artery. Antegrade flow is noted in the left vertebral artery. Procedure Carotid Duplex 70155. This is a Carotid Duplex examination using B-mode, color flow and specral Doppler. Exam performed in department. VL/Carotid Duplex Ultrasound Interpretation Summary Mild (<50%) stenosis right extracranial internal carotid. Mild (<50%) stenosis left extracranial internal carotid. Patent and antegrade vertebrals bilaterally. Ordering Physician: Edgar Hollingsworth Referring Physician: Stella Ahuja M.D. Performed By: [facility]
== END | disposition home or self-care (01) ==
LOC: CVS 10:52
PROVIDERS: PCP Family Medicine; Referring Provider Nurse Practitioner Family; Visit Provider Nurse Practitioner Family
DX: I65.22 Occlusion and stenosis of left carotid artery (principal); Z72.0 Tobacco use; Z95.5 Presence of coronary angioplasty implant and graft
CPT/HCPCS: 93880

== ENCOUNTER 2023-11-22 14:30 | Outpatient (RCR) | payer OTHER, SELFPAY ==
[2023-10-18 10:28] VITALS: BMI 27.0
--- NOTE | 2023-11-15 09:04 | CR.ITP_ITS ---
Exercise - Initial Assessment Visit Session #:: 10 Physician Prescribed Exercise Modalities: Treadmill, Schwinn Airdyne AD-7 and SciFit Stepper Nutrition - Initial Assessment Weight Mgt (Other Care) Height: 5 ft 8 in Weight:: 181 lb 8 oz BMI: 27.6 Psychosocial - Initial Assess Target Goals Target Goals Patient Health Questionnaire PHQ-9 Screening 30-Day Re-eval Assessment: 1. Little interest or pleasure in doing things: Several days 2. Feeling down, depressed, or hopeless: Nearly every day 3. Trouble falling or staying asleep, or sleeping too much: Nearly every day 4. Feeling tired or having little energy: Nearly every day 5. Poor appetite or overeating: Several days 6. Feeling bad about yourself -- or that you are a failure or have let yourself or your family down: More than half the days 7. Trouble concentrating on things, such as reading the newspaper or watching television: Several days 8. Moving or speaking so slowly that other people could have noticed. Or the opposite - being so fidgety or restless that you have been moving around a lot more than usual: Several days 9. Thoughts that you would be better off , or of hurting yourself in some way: Not at all How difficult have these problems made it for you to do your work, take care of things at home, or get along with other people?: Somewhat difficult Total Score: 15 Self-Efficacy 6-Item Scale 30-Day Re-eval Assessment: We would like to know how confident you are in doing certain activities. Please select your confidence level for: Fatigue Select Number: 5 Physical Discomfort or Pain Select Number: 5 Emotional Distress Select Number: 5 Other Symptoms or Health Problems Select Number: 5 Different Tasks and Activities Select Number: 5 Medication Select Number: 5 Total Score:: 5 Nutrition Survey Nutrition Survey Instructions Scoring Instructions Exercise - 30-day Assessment Visit Date of Eval: 11/15/23 Session #:: 10 Physician Prescribed Exercise Modalities: Treadmill, Schwinn Airdyne AD-7 and SciFit Stepper Frequency: 3x/week for 12 weeks [36 sessions] Intensity: 60-80% of age predicted maximum heart rate reserve Duration: 30 - 45 minutes Current METSs:: 3.6 Target Heart Rate:: 10-118 Current RPE:: 12-14 Maximum Excercise HR:: 92 Resting Blood Pressure: 142/89 Maximum Exercise Blood Pressure: 150/82 EKG Type: Sr to ST with a rare pac,pvc Outcomes & Goals Goals:: Verbalizes understanding of THR, RPE & goal METS by session 6, Documents in home exercise log/reports 30 min aerobic 5 day/wk by DC, Demonstrates accurate pulse taking by DC and Other additional outcome/goals: see below Intervention & Plan Exercise Program Goals: Instruct on personal THR & RPE, Instruct on MET level & personal MET goal, Show patient to take own pulse /validate performance until accurate, Instruct on home exercise and Other additional plan/int 30-day Reassessments 30 day Reassessments:: Progressing Reassessment Notes & Comments:: RPE explained Physical Activity Home Exercise Physical Activity - Home Exercise: Safe Exercise, Warm-up, Self-monitoring, Cool-Down, Home Exercise > 30 min Daily and Sitting Time <3 hours/daily Outcomes & Goals Outcomes/Goals: Demonstrates correct Warm-up/exercise Cool-Down (S3) if = 2.5 METs, Verbalizes symptoms of exercise intolerance by Session 3 (S3), Demonstrate safe equipment use (S3) & follows exercise prescrition (6) and Other: See below Intervention & Plan Plan/Intervention: Instruct warm-up & cool-down if exercising at > 2 METs, Instruct on symptoms of exercise intolerance & actions to take, Instruct & monitor on saf, Assess intial functional capacity & safety risk and Other See below 30-day Reassessments 30 day Reassessments:: Progressing Reassessment Notes & Comments:: warm up encouraged Exercise - 60-day Assessment Physician Prescribed Exercise Modalities: Treadmill, Schwinn Airdyne AD-7 and SciFit Stepper Exercise - 90-day Assessment Physician Prescribed Exercise Modalities: Treadmill, Schwinn Airdyne AD-7 and SciFit Stepper Exercise - Final/Discharge Physician Prescribed Exercise Modalities: Treadmill, Schwinn Airdyne AD-7 and SciFit Stepper Nutrition - 30-Day Assessment Program Goals Nutrition Program Goals Patient has diagnosis of Hyperlipidemia (ICD E78)?: No Visit Date of Eval: 11/15/23 Session #:: 10 Cholesterol/Lipids (Other Core Measures) Determine presence & major risk factors that modify LDL goal: Hypertension or hypertensive medication, Low HDL cholesterol <40 mg/dL*, Family history of premature CHD in Male < 55 years: female <65 yearsFa and Age men > 45 years; women >/= 55 years Outcomes/Goals: Pt IDs own risk factors & lifestyle modifications by Session 10, Verbalizes symptoms of angina & response by session 3., Pt independently manages and Other Additional Outcomes/Goals: Intervention/Plan: Advocate for lipid panel cholesterol medication if applicable, Instruct on personal lipid levels & lipid goals/NCEP guidelines, Instruct on cholesterol and Other additional plan/int 30-day Reassessments:: Progressing Reassessment Notes & Comments:: pt to attend nutrition class Diabetes (Other Core Measures) Diabetes Type: Not Applicable Weight Mgt (Other Care) Height: 5 ft 8 in Weight:: 181 lb 8 oz BMI: 27.6 Diagnosis Overweight/Obesity BMI> 30% ICD-10 E66: No Diagnosis High BMI/Morbid Obesity BMI> 35% ICD-10 Z68: No Outcomes/Goals: Pt sets, maintains & shows weight loss goal & trend during rehab and Other additional outcomes/goals Intervention/Plan: Instruct on ideal BMI & set weight loss goal w/patient, Assist pt to ID & incorporate diet changes for weight loss by S9, Refer to Structured Weight Loss program as appropriate, Encourage goal of using 250- 300dcal per session for weight loss and Other additional plan/interventions 30 day Reassessments:: Progressing Reassessment Notes & Comments:: pt to attend nutrition class, pt has lost 2LB Healthy Eating Habits Will attend diet classes:: Yes Outcomes/Goals:: Consume diet rich in vegs,fruits,whole grain/high fiber,fish,l ibis meat, Limit sat/trans fats,cholesterol & added salts & sugars and Other additional outcome/goals: Intervention/Plan:: Assess current eating habits and Other Additional plan /interventions 30-day Reassessments:: Progressing Reassessment Notes & Comments:: pt to attend nutrition class Education Gave educational materials for:: Signs & symptoms of hypoglycemia, Signs & symptoms of hyperglycemia, Relate diabetes to coronary artery disease and Healthy eating Nutrition - 60-Day Assessment Weight Mgt (Other Care) Height: 5 ft 8 in Weight:: 181 lb 8 oz BMI: 27.6 Core - 30-Day Assessment Visit Date of Eval: 11/15/23 Session #:: 10 Medication Compliance Preventative Medication(s):: Aspirin, CASEY inhibitor, Clopidogrel/P2Y12 inhibit, Statin/lipid and Beta rafa H/O mental health issues: depression, anxiety, or addiction?: Yes Doesn?t believe in the benefits of treatment?: No Believes medications are unnecessary or harmful?: No Has a concern about medication side effects?: No Expresses concern over the cost of medications?: No Outcomes/Goals: Verbalizes medications,desired effect & common side effects @ DC, Pt self-reports following medication regimen, Keeps card in wallet w/medications listed by DC and Other additional outcome/goals: Interventions/plans: Instruct on medication effects & side effects, Review medication list w/patient every two weeks, Instruct importance of taking meds as ordered & assist problem solving and Other additional 30-day Reassessments:: Progressing Reassessment Notes & Comments:: pt encouraged to take her meds Tobacco Use Tobacco Use: Non-smoker Hypertension Hypertension Diagnosis:: Hypertension ICD-10 I10 Resting Blood Pressure:: 142/89 [place] [employer] Hypertension Guidelines Peak Exercise Blood Pressure:: 150/82 Outcomes/Goals: Able to verbalize/achieve optimal blood pressure <130/80, Incorporates diet changes & exercise for blood pressure control by DC and Other additional outcomes/goals Interventions/plan: Instruct on optimal blood pressure, hypertension & medications, Instruct on effects of sodium, alcohol, stress, exercise &hypertension and Other additional plan/interventions 30 day Reassessments:: Progressing Reassessment Notes & Comments:: pt encouraged to take her meds Tobacco Cessation Referral Smoking Cessation Referral:: No Individual Education/Counseling:: No Education Schedule Given:: Yes Psychosocial - 30-Day Assess VIsit History of previous Mental disease:: Yes History of Emotional Disorders: Anxious and Depression Target Goals Target Goals Outcomes/Goals: See list Psychosocial Outcomes/Goals:: ID's personal stressors & 2 strategies to manage stress by discharge and Other Additional outcome/goals: Intervention/Plan: See List Interventions/Plan:: Assess stressors,coping strategies & signs of derpression on admission, Instruct/assist pt to develop coping & personal stress Mgt strategies, Refer to Behavioral Health if appropriate, Refer to Physician if appropriate, Instruct patient to recognize signs & symptoms of depression, Instruct patient to recog and Other additional plan/intervention 30-day Reassessments: 30 day Reassessments:: Progressing Reassessment Notes & Comments:: pt is doing well at this time Psychosocial - 60-Day Assess Target Goals Target Goals Outcomes/Goals: See list Psychosocial Outcomes/Goals:: ID's personal stressors & 2 strategies to manage stress by discharge and Other Additional outcome/goals: Psychosocial - 90-Day Assess Target Goals Target Goals Psychosocial - Final Assessmen Target Goals Target Goals Nutrition - 90-Day Assessment Weight Mgt (Other Care) Height: 5 ft 8 in Weight:: 181 lb 8 oz BMI: 27.6 Nutrition - Final Assessment Weight Mgt (Other Care) Height: 5 ft 8 in Weight:: 181 lb 8 oz BMI: 27.6
[2023-11-15 09:27] VITALS: BP 142/89; BMI 27.6
== END 2023-11-22 23:59 ==
LOC: CR 14:30
PROVIDERS: PCP Family Medicine; Referring Provider Internal Medicine Cardiovascular Disease; Visit Provider Internal Medicine Cardiovascular Disease
DX: Z95.5 Presence of coronary angioplasty implant and graft (principal); I21.3 ST elevation (STEMI) myocardial infarction of unspecified site; I25.10 Atherosclerotic heart disease of native coronary artery without angina pectoris; I87.339 Chronic venous hypertension (idiopathic) with ulcer and inflammation of unspecified lower extremity; M79.604 Pain in right leg; I87.031 Postthrombotic syndrome with ulcer and inflammation of right lower extremity; I83.019 Varicose veins of right lower extremity with ulcer of unspecified site; F17.200 Nicotine dependence, unspecified, uncomplicated; N18.30 Chronic kidney disease, stage 3 unspecified; I12.9 Hypertensive chronic kidney disease with stage 1 through stage 4 chronic kidney disease, or unspecified chronic kidney disease
CPT/HCPCS: 93798

== ENCOUNTER 2023-11-25 11:48 | Outpatient (RCR) | payer OTHER, SELFPAY ==
[2023-11-15 09:27] VITALS: BMI 27.6
[2023-11-23 00:22] VITALS: BP 142/89
== END 2023-12-22 23:59 ==
LOC: CR 11:48
PROVIDERS: PCP Family Medicine; Referring Provider Internal Medicine Cardiovascular Disease; Visit Provider Internal Medicine Cardiovascular Disease
DX: Z95.5 Presence of coronary angioplasty implant and graft (principal); I21.3 ST elevation (STEMI) myocardial infarction of unspecified site; I25.10 Atherosclerotic heart disease of native coronary artery without angina pectoris; I87.339 Chronic venous hypertension (idiopathic) with ulcer and inflammation of unspecified lower extremity; M79.604 Pain in right leg; I87.031 Postthrombotic syndrome with ulcer and inflammation of right lower extremity; N18.30 Chronic kidney disease, stage 3 unspecified; I12.9 Hypertensive chronic kidney disease with stage 1 through stage 4 chronic kidney disease, or unspecified chronic kidney disease
CPT/HCPCS: 93798

== ENCOUNTER → 2024-01-06 | Outpatient (CLI) | payer OTHER, SELFPAY ==
[2023-11-15 09:27] VITALS: BMI 27.6
[2024-01-06 13:03] LABS: Anion Gap 6 (5-15); BUN 20 mg/dL (7-18); BUN/Creat Ratio 21.2 RATIO (10-20); Calcium,Total 8.5 mg/dL (8.5-10.1); Chloride 105 mmol/L (98-107); Creatinine, Serum 0.94 mg/dL (0.55-1.02); EST Glomerular Filtration Rate 63 mL/min (>60); Est Glom Filt Rate - Afr Amer 77 mL/min (>60); Glucose 88 mg/dL (74-106); Sodium Level 139 mmol/L (136-145); Thyroid Stim Hormone (TSH) 2.29 uIU/mL (0.358-3.74)
== END | disposition home or self-care (01) ==
LOC: LAB 11:03
PROVIDERS: PCP Family Medicine; Referring Provider Internal Medicine Cardiovascular Disease; Visit Provider Internal Medicine Cardiovascular Disease
DX: I10 Essential (primary) hypertension (principal); E78.5 Hyperlipidemia, unspecified; I25.10 Atherosclerotic heart disease of native coronary artery without angina pectoris
CPT/HCPCS: 36415; 80048; 84443

== ENCOUNTER → 2024-01-24 | Outpatient (CLI) | payer OTHER, SELFPAY ==
[2023-11-15 09:27] VITALS: BMI 27.6
[2024-01-24 11:29] LABS: ALB/GLOB Ratio 0.9 RATIO (0.9-2.4); AST(SGOT) 20 U/L (15-37); Alanine Aminotransfer ALT/SGPT 15 U/L (13-56); Albumin, Serum 3.3 g/dL (3.2-5.0); Alkaline Phosphatase 122 U/L (45-117); Anion Gap 4 (5-15); BUN 14 mg/dL (7-18); BUN/Creat Ratio 15.1 RATIO (10-20); Calcium,Total 8.6 mg/dL (8.5-10.1); Chloride 106 mmol/L (98-107); Cholesterol 101 mg/dL (200); Creatinine, Serum 0.93 mg/dL (0.55-1.02); EST Glomerular Filtration Rate 65 mL/min (>60); Est Glom Filt Rate - Afr Amer 78 mL/min (>60); Globulin 3.7 g/dL (2.2-4.2); Glucose 80 mg/dL (74-106); High Density Lipoprotein 42 mg/dL; Potassium 3.5 mmol/L (3.5-5.1); Sodium Level 138 mmol/L (136-145); Triglycerides 140 mg/dL; Very Low Density Lipoprotein 28 mg/dL (5-40)
== END | disposition home or self-care (01) ==
LOC: LAB 10:29
PROVIDERS: PCP Family Medicine; Referring Provider Internal Medicine Cardiovascular Disease; Visit Provider Internal Medicine Cardiovascular Disease
DX: I10 Essential (primary) hypertension (principal); I25.10 Atherosclerotic heart disease of native coronary artery without angina pectoris
CPT/HCPCS: 36415; 80053; 80061

== ENCOUNTER → 2024-03-03 | Outpatient (CLI) | payer OTHER, SELFPAY ==
[2023-11-15 09:27] VITALS: BMI 27.6
[2024-03-06 14:10] LABS: Chlamydia By Nucleic Acid AMP Negative (Negative); Gonococcus By Nucleic Acid AMP Negative (Negative); Trich. Vag By Nucleic Acid AMP Negative (Negative)
[2024-03-08 22:13] LABS: HPV Reflexed? NOT INDICATED
== END | disposition home or self-care (01) ==
LOC: MFPLAB 11:46
PROVIDERS: PCP Family Medicine; Visit Provider Nurse Practitioner Family
DX: Z01.419 Encounter for gynecological examination (general) (routine) without abnormal findings (principal)
CPT/HCPCS: 87491; 87591; 88175; G0145

== ENCOUNTER 2024-04-10 07:00 | Emergency (ER) | payer OTHER, SELFPAY ==
[2023-11-15 09:27] VITALS: BMI 27.6
[2024-04-10 07:04] VITALS: BP 191/92; PULSE 47; RESP 12; TEMP 36.7; O2SAT 98; BMI 29.2
--- NOTE | 2024-04-10 07:26 | EDS_ITS ---
HPI History of Present Illness Chief Complaint: Chest Pain Narrative Narrative: Chief complaint and HPI: Chest pain. 63-year-old female with recent history of STEMI status post PCI in September, HTN, HLD presents for evaluation of midsternal chest pain. Patient states this pain woke her up at 5 AM. She states she just got her tooth pulled yesterday at the dentist so she took an oxycodone. Pain is improving. She rates it a 4 out of 10. She describes it as sharp. Does not radiate down the arms or into the jaw. Denies any fever, chills, abdominal pain, nausea, vomiting. Patient states she did have a couple seconds of shortness of breath but this has resolved as well. She is hypertensive on arrival, she states she did not take her blood pressure medication today. Review of systems: See HPI Medications: As listed on the chart Allergies: As listed on the chart PFSH: Per chart Vital signs: As listed on the chart. Reviewed. Physical exam: Gen: A&O x3, NAD Head: Normocephalic, atraumatic Eyes: No sclera icterus, conjunctiva clear ENT: Moist mucous membranes, patient missing tooth #27 that was recently pulled- good clot over the socket, no swelling or abscess, no Frankie Neck: Trachea midline, No JVD CV: Bradycardic, regular rhythm, no murmurs, no peripheral edema Resp: Lungs CTA BL, no w/r/c GI: Abd soft, non-distended, non-tender, no r/r/g Musc: Full ROM, no deformity Skin: Warm, dry Neuro: Alert, oriented, grossly intact, sensation intact Psych: Cooperative, appropriate mood and affect PFSH PFSH Medical History 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 Leg pain, right Venous hypertension, chronic, with ulcer and inflammation Ulcer of varicose vein of right leg Chronic venous insufficiency Lupus CKD (chronic kidney disease) stage 3, GFR 30-59 ml/min Nicotine dependence Coronary artery disease Chronic anemia Anxiety and depression Fibromyalgia Hypertension Tobacco use Home Medications ?Medication ?Instructions ?Recorded ?Last Taken ?Type fluoxetine 40 mg capsule 40 mg PO DAILY 09/25/23 Unknown History aspirin 81 mg chewable tablet 81 mg PO DAILY 90 days #90 tabs 09/27/23 Unknown Rx atorvastatin 80 mg tablet 80 mg PO QHS 90 days #90 tabs 09/27/23 Unknown Rx clopidogrel 75 mg tablet 75 mg PO DAILY 90 days #90 tabs 09/27/23 Unknown Rx ibuprofen 200 mg tablet 400 mg PO TID PRN 10/09/23 Unknown History lisinopril 40 mg tablet 40 mg PO BID This is a dose 01/13/24 Unknown Rx increase #60 tabs metoprolol tartrate 25 mg tablet 12.5 mg (1/2 x 25 mg) PO BID 90 01/24/24 Unknown Rx days #90 tabs Allergy/AdvReac Type Severity Reaction Status Date / Time Penicillins AdvReac Unknown Yeast Verified 04/10/24 07:04 infections Family History Mother CAD (coronary artery disease) Heart disease Hypertension Anxiety and depression Father Melanoma Sister Cancer Colon Brother Cancer Prostate Surgical History History of appendectomy Stented coronary artery (09/25/23) History of back surgery S/P right knee arthroscopy History of cholecystectomy Social History household members: spouse Smoking Status: Former smoker quit date: 09/25/23 alcohol intake: current alcohol intake frequency: holidays/special occasions only substance use type: does not use caffeine: Yes Type: coffee Number of servings: 2 EXAM Physical Exam Const Vital Signs: 04/10/24 07:04 04/10/24 07:09 04/10/24 08:00 Temperature 98.0 F 97.8 F Temperature Source Oral Temporal Pulse Rate 47 L 51 L Respiratory Rate 12 18 Respiratory Effort Normal Non-Labored Respiratory Pattern Normal Blood Pressure 191/92 H 177/98 H Blood Pressure Mean 125 124 Pulse Ox 98 98 Oxygen Delivery Method Room Air Room Air 04/10/24 09:00 04/10/24 10:00 04/10/24 11:00 Temperature Temperature Source Pulse Rate 49 L 51 L 51 L Respiratory Rate 18 14 16 Respiratory Effort Respiratory Pattern Blood Pressure 170/90 H 173/91 H 177/64 H Blood Pressure Mean 116 118 101 Pulse Ox 99 99 97 Oxygen Delivery Method Room Air Room Air Room Air MDM MDM MDM Narrative Medical decision making narrative: 63-year-old female with significant cardiac history presents for evaluation of chest pain. Patient did take an oxycodone prior to arrival she just got her teeth pulled. On chart review, patient was had a STEMI in September. I reviewed the discharge paperwork. She had an echocardiogram on 09/25/2023 that showed an EF of 55%. She had a cardiac cath on 09/25/2023. She got PTCA to the mid LCx and mid OM1. She follows with cardiology. On presentation, patient is bradycardic. Her heart rate is 47. She is on metoprolol. On chart review she has a history of bradycardia into the 50s. She is hypertensive into the 190s. She did not take her blood pressure medication. She is also complaining of tooth pain which adds to her hypertension. Hydralazine ordered. Differential diagnosis includes but is not limited to musculoskeletal strain, pleurisy, hypertension urgency, hypertension emergency, ACS. Less likely PE. Aspirin ordered. Cardiac workup ordered. EKG and chest x-ray reviewed. See below. CBC without leukocytosis patient has baseline anemia of 11.2. BMP relatively unremarkable. Troponin 14. D-dimer elevated at 3.58. Cannot rule out PE. CTA chest ordered. CTA chest without PE or dissection. Patient does have emphysema and fibrotic densities. Repeat troponin 13. Troponins negative. BNP mildly elevated at 321. Patient has a normal EF. Not fluid overloaded on exam or imaging. On reevaluation, patient states her pain is improved. Despite her cardiac history, low suspicion for ACS. However given that she follows with cardiology, cardiology was contacted and patient was discussed with Dr. Kitchen. He agrees unlikely for ACS. Plan is for discharge home. Follow-up in their office. Patient's blood pressure did improve with hydralazine to 177/64. Patient did not take her blood pressure medication today. She was told to take this when she goes home. She confirmed understand the plan. Return precautions explained. EKG: Interpreted by me/EM physician: EKG shows sinus bradycardia with a heart rate of 46. No acute ischemic changes. Diagnostic: Interpreted by me/EM physician: Pneumonia, effusion, cardiomegaly, pneumothorax Impression: 1. Chest pain 2. Hypertension with history of hypertension 3. Recent dental extraction Lab Data Labs: Laboratory Results - last 24 hr 04/10/24 04/10/24 07:13 10:00 WBC 5.9 RBC 3.64 L Hgb 11.2 L Hct 34.5 L MCV 94.8 MCH 30.8 MCHC 32.5 RDW Std Deviation 50.4 H RDW Coeff of [place] 14.5 Plt Count 157 MPV 11.6 Immature Gran % (Auto) 0.300 Neut % (Auto) 69.8 Lymph % (Auto) 18.3 L [place] % (Auto) 9.0 Eos % (Auto) 1.9 Baso % (Auto) 0.7 Absolute Neuts (auto) 4.1 Absolute Lymphs (auto) 1.07 Nucleated RBC % 0 D-Dimer Quant (PE/DVT) 3.58 H* Sodium 139 Potassium 3.8 Chloride 108 H Carbon Dioxide 28.0 Anion Gap 3 L BUN 18 Creatinine 0.98 Estim Creat Clear Calc 67.04 Est GFR (MDRD) Af Amer 74 Est GFR (MDRD) Non-Af 61 BUN/Creatinine Ratio 18.4 Glucose 101 Calcium 8.4 L Troponin I High Sens 14 13 B-Natriuretic Peptide 321.6 H Radiography Diagnostic Testing: Clinical Impression(s) from Imaging Studies Chest X-Ray 04/10/24 07:50 IMPRESSION: Mild lower lung fibrosis. Electronically Signed: Mauricio Hitchcock MD at 8:41 EDT , Chest CTA 04/10/24 08:17 IMPRESSION: CTA chest examination, without a demonstrated pulmonary embolism or arterial dissection. Emphysema and fibrotic densities. Electronically Signed: Mauricio Hitchcock MD at 9:14 EDT , Discharge Plan Triage Chief Complaint: Chest Pain ED Provider: Santi Toscano Dx/Rx/DC Orders Prescriptions: No Action ibuprofen 200 mg tablet 400 mg PO TID PRN fluoxetine 40 mg capsule 40 mg PO DAILY atorvastatin 80 mg Tablet 80 mg PO QHS 90 Days Qty: 90 3RF clopidogrel 75 mg Tablet 75 mg PO DAILY 90 Days Qty: 90 3RF aspirin 81 mg Tablet,Chewable 81 mg PO DAILY 90 Days Qty: 90 3RF lisinopril 40 mg tablet 40 mg PO BID Qty: 60 11RF metoprolol tartrate 25 mg tablet 12.5 mg PO BID 90 Days Qty: 90 3RF Primary Care Provider: Stella Ahuja Referrals: Stella Ahuja MD [Primary Care Provider] - Print Language: [place]
--- NOTE | 2024-04-10 07:32 | EKG12_ITS ---
Test Reason : cp Blood Pressure : / mmHG Vent. Rate : 046 BPM Atrial Rate : 046 BPM P-R Int : 186 ms QRS Dur : 086 ms QT Int : 504 ms P-R-T Axes : 031 -21 024 degrees QTc Int : 441 ms Sinus bradycardia Otherwise normal ECG Confirmed by Rosalio Kitchen ([id number]), video effects editor CHUY ATKINS ([id number]) on 04/13/2024 11:48:31 AM Referred By: Confirmed By:Rosalio Kitchen
[2024-04-10 07:44] LABS: Absolute Lymphocyte Count 1.07 X10^3/uL (0.83-4.51); Absolute Neutrophil Count 4.1 X10^3/uL (2.0-7.7); Basophil# 0.04 X10^3/uL; Basophil% 0.7 % (0-1); Eosinophil# 0.11 X10^3/uL; Eosinophils% 1.9 % (0-5); Hematocrit 34.5 % (37-47); Hemoglobin 11.2 g/dL (12.0-15.0); Lymphocyte # 1.07 X10^3/ul (0.83-4.51); Lymphocyte % 18.3 % (19-41); Mean Corp Hgb Conc 32.5 g/dL (32-36); Mean Corpuscular Hgb 30.8 pg (27.0-32.0); Mean Corpuscular Volume 94.8 fL (81-99); Mean Platelet Vol. 11.6 fl (6.2-12.0); Monocyte# 0.53 X10^3/uL; NRBC Flagged by Analyzer 0 % (0-5); Neutrophil # 4.09 X10^3/uL (2.7-7.7); Neutrophil % 69.8 % (47-70); Platelet Count 157 K/mm3 (150-450); RBC Distribution Width CV 14.5 % (11.6-14.6); RBC Distribution Width SD 50.4 fl (35.1-43.9); Red Blood Count 3.64 M/mm3 (4.2-5.4); White Blood Count 5.9 K/mm3 (4.4-11.0)
--- NOTE | 2024-04-10 07:50 | RAD_ITS ---
STUDY: X-RAY CHEST REASON FOR EXAM: Female, 63 years old. Chest pain TECHNIQUE: Single AP portable view of the chest. COMPARISON: October 11, 2021 FINDINGS: There are monitoring devices. There are mild right lower lung interstitial increased opacities. There is no demonstrated pleural abnormality. Normal size heart. There are calcified mediastinal lymph nodes. Normal visualized pulmonary arteries. Normal visualized aortic arch and descending thoracic aorta. Normal visualized thoracic spine. Normal visualized ribs, clavicles, and shoulders. There is no demonstrated abnormality of the visualized soft tissue structures of the upper abdomen. RAD/Chest 1 View (Portable) IMPRESSION: Mild lower lung fibrosis. Electronically Signed: Mauricio Hitchcock MD at 8:41 EDT ,
[2024-04-10] MEDS: Aspirin 81 MG TAB.CHEW 324 MG PO (07:51)
[2024-04-10] MEDS: hydrALAZINE 20 MG/ML Vial 10 MG IV (07:52)
[2024-04-10 08:00] VITALS: BP 177/98; PULSE 51; RESP 18; TEMP 36.6; O2SAT 98
[2024-04-10 08:04] LABS: Anion Gap 3 (5-15); BUN 18 mg/dL (7-18); BUN/Creat Ratio 18.4 RATIO (10-20); Calcium,Total 8.4 mg/dL (8.5-10.1); Chloride 108 mmol/L (98-107); Creatinine, Serum 0.98 mg/dL (0.55-1.02); EST Glomerular Filtration Rate 61 mL/min (>60); Est Glom Filt Rate - Afr Amer 74 mL/min (>60); Estimated Creatinine Clearance 67.04 ml/min; Glucose 101 mg/dL (74-106); Potassium 3.8 mmol/L (3.5-5.1); Sodium Level 139 mmol/L (136-145); Troponin-I HS (w/2H Reflex) 14 pg/mL (3.0-54.0)
[2024-04-10 08:14] LABS: D-Dimer Quantitative (DVT/PE) 3.58 FEU/ug/m (0.27-0.49)
--- NOTE | 2024-04-10 08:17 | CT_ITS ---
STUDY: CTA CHEST REASON FOR EXAM: Female, 63 years old. Elevated dimer. Assess for PE/Dissection RADIATION DOSAGE (If Supplied By Facility): CTDIvol = ( 12.64 ) mGy, DLP = ( 250.09 ) mGycm TECHNIQUE: The examination was performed with the intravenous administration of IV 100mL [id number]-370. Post-processing of the angiographic images was performed, with multiplanar reformation and 3D reconstruction. Individualized dose optimization techniques were used for this CT. COMPARISON: Chest x-ray FINDINGS: Normal enhancement of the main pulmonary artery and right and left pulmonary arteries. Normal enhancement of the bilateral peripheral pulmonary arteries. There is no demonstrated pulmonary embolism. There is atherosclerotic calcification of the aortic arch with tortuosity. There is no demonstrated aortic dissection. There are calcifications of the coronary arteries. Normal mediastinum. There are calcified left hilar lymph nodes. Normal visualized trachea and bronchi. The lungs are well expanded. There is emphysema of the lungs. There are fibrotic densities. There is calcified right upper lung granuloma. Normal pleura. Normal chest wall structures. Normal osseous structures. Normal visualized upper abdomen. CT/CTA Chest W/WO Contrast IMPRESSION: CTA chest examination, without a demonstrated pulmonary embolism or arterial dissection. Emphysema and fibrotic densities. Electronically Signed: Mauricio Hitchcock MD at 9:14 EDT ,
[2024-04-10 08:19] LABS: Prothrombin Time (Protime)PT. 12.9 SECONDS (11.7-14.9)
[2024-04-10 08:20] LABS: Partial Thromboplast Time 25.6 Seconds (24.1-36.2)
[2024-04-10 09:00] VITALS: BP 170/90; PULSE 49; RESP 18; O2SAT 99
[2024-04-10 09:39] LABS: Reflex Troponin-HS? (from REC) Y
[2024-04-10 10:00] VITALS: BP 173/91; PULSE 51; RESP 14; O2SAT 99
[2024-04-10 10:23] LABS: BNP,B-Type NATRIURETIC PEPTIDE 321.6 pg/mL (0-100)
[2024-04-10] MEDS: HYDROcodone Bitartrate/Apap 5/325 Tablet PO (10:31)
[2024-04-10 10:43] LABS: Troponin-I HS 13 pg/mL (3.0-54.0)
[2024-04-10 11:00] VITALS: BP 177/64; PULSE 51; RESP 16; O2SAT 97
[2024-04-10 11:44] VITALS: BP 164/71; PULSE 51; RESP 16; TEMP 36.6; O2SAT 99
== END 2024-04-10 11:45 | disposition home or self-care (01) ==
PROVIDERS: Emergency Provider Surgery; PCP Family Medicine; Visit Provider Surgery
DX: R07.9 Chest pain, unspecified (principal); N18.30 Chronic kidney disease, stage 3 unspecified; Z87.891 Personal history of nicotine dependence; I25.10 Atherosclerotic heart disease of native coronary artery without angina pectoris; I12.9 Hypertensive chronic kidney disease with stage 1 through stage 4 chronic kidney disease, or unspecified chronic kidney disease; I25.2 Old myocardial infarction; F41.8 Other specified anxiety disorders; Z79.02 Long term (current) use of antithrombotics/antiplatelets; Z79.82 Long term (current) use of aspirin; Z90.49 Acquired absence of other specified parts of digestive tract; R06.02 Shortness of breath
CPT/HCPCS: 71045; 71275; 80048; 83880; 84484; 85025; 85379; 85610; 85730; 93005; 96374; 99284; Q9967; A4216

== ENCOUNTER → 2024-06-30 | Outpatient (CLI) | payer OTHER, SELFPAY ==
[2023-11-15 09:27] VITALS: BMI 27.6
[2024-06-30 11:32] LABS: AST(SGOT) 20 U/L (15-37); Alanine Aminotransfer ALT/SGPT 18 U/L (13-56); Albumin, Serum 3.4 g/dL (3.2-5.0); Alkaline Phosphatase 110 U/L (45-117); Anion Gap 3 (5-15); BUN 19 mg/dL (7-18); BUN/Creat Ratio 21.2 RATIO (10-20); Calcium,Total 8.6 mg/dL (8.5-10.1); Chloride 106 mmol/L (98-107); Cholesterol 109 mg/dL (200); EST Glomerular Filtration Rate 67 mL/min (>60); Est Glom Filt Rate - Afr Amer 81 mL/min (>60); Globulin 3.5 g/dL (2.2-4.2); Glucose 90 mg/dL (74-106); High Density Lipoprotein 44 mg/dL; Potassium 3.9 mmol/L (3.5-5.1); Protein, Total 6.9 g/dL (6.4-8.2); Sodium Level 137 mmol/L (136-145); Triglycerides 85 mg/dL; Very Low Density Lipoprotein 17 mg/dL (5-40)
== END | disposition home or self-care (01) ==
LOC: LAB 10:16
PROVIDERS: PCP Family Medicine; Referring Provider Internal Medicine Cardiovascular Disease; Visit Provider Internal Medicine Cardiovascular Disease
DX: I77.9 Disorder of arteries and arterioles, unspecified (principal); I25.10 Atherosclerotic heart disease of native coronary artery without angina pectoris; E78.5 Hyperlipidemia, unspecified; Z95.5 Presence of coronary angioplasty implant and graft; Z72.0 Tobacco use; I10 Essential (primary) hypertension
CPT/HCPCS: 36415; 80053; 80061

== ENCOUNTER 2024-10-17 10:26 | Outpatient (CLI) | payer OTHER, SELFPAY ==
[2023-11-15 09:27] VITALS: BMI 27.6
== END 2024-10-17 23:59 | disposition home or self-care (01) ==
LOC: LABSPEC 10:28
PROVIDERS: PCP Family Medicine; Referring Provider Family Medicine; Visit Provider Family Medicine
DX: R35.0 Frequency of micturition (principal)
CPT/HCPCS: 87077; 87086; 87088; 87186